=== PATIENT | male | born 1960 | race Caucasian/White ===

== ENCOUNTER 2016-09-26 04:08 | Emergency (ER) | payer MEDICAID ==
[~2016-09-26 04:08] MED LIST: BACT800T5 PO; CEPH-460 PO; HYDR-3533 PO
[2016-09-26 04:10] VITALS: BP 127/87; PULSE 82; RESP 18; TEMP 97.9; O2SAT 95
[2016-09-26] MEDS ORDERED: IBUP800T23 PO (04:25)
[2016-09-26] MEDS ORDERED: ACETAMINOPHEN/HYDROcodone 325 MG/5 MG TAB PO ONE (04:30)
[2016-09-26] MEDS ORDERED: KETOROLAC TROMETHAMINE 60 MG/2 ML (IM) VIAL IM ONE (04:30)
--- NOTE | 2016-09-26 04:30 | PD ---
HPI Chief Complaint: Pain: Acute or Chronic Time Seen by Provider: 04:18 Travel History International Travel<30 days: No Contact w/Intl Traveler<30days: No Traveled to known affect area: No History of Present Illness HPI 55 year old male presents for evaluation of chronic lower back and bilateral knee pain. Symptoms have been ongoing for several months. He denies any new pain. He denies any injury. The pain is an aching pain that is constant but worse with movement. He denies any bowel or bladder incontinence, radicular symptoms, saddle anesthesia, abdominal pain, flank pain, nausea or vomiting, fevers or chills, IV drug abuse. He has not been using any medication for symptom relief. He reports a history of rheumatoid arthritis as well as "bone- on-bone" osteoarthritis in both knees. The patient has been seen here multiple times in the past for various musculoskeletal complaints. He has no other complaints at this time. PFSH Past Medical History Hx Anticoagulant Therapy: No Arthritis: Yes (OA, RA) Asthma: No Autoimmune Disease: No Blood Disorders: No Anxiety: Yes Depression: Yes Heart Rhythm Problems: No Cancer: No Cardiac Catheterization: Yes (stent) Cardiovascular Problems: Yes (CHF) High Cholesterol: Yes Chemotherapy: No Chest Pain: Yes Congestive Heart Failure: No Cirrhosis: Yes COPD: Yes (EMPHYSEMA) Cerebrovascular Accident: No Diabetes: No Diminished Hearing: No Endocrine: No Gastrointestinal Disorders: Yes GERD: Yes Glaucoma: No Gout: Yes Genitourinary: Yes Hepatitis: No Hiatal Hernia: No Hypertension: Yes Immune Disorder: Yes (RA) Kidney Stones: Yes Musculoskeletal: Yes (GOUT) Neurologic: Yes (NEUROPATHY) Psychiatric: Yes Reproductive: No Respiratory: No Immunizations Current: Yes Migraines: No Myocardial Infarction: No Renal Failure: No Schizophrenia: Yes Seizures: Yes Sickle Cell Disease: No Sleep Apnea: No Thyroid Disease: No Ulcer: No Past Surgical History Abdominal Surgery: No AICD: No Arteriovenous Shunt: No Body Medical Devices: PT STATES NO IMPLANTED DEVICES Cardiac Surgery: No Coronary Artery Bypass Graft: No Ear Surgery: No Endocrine Surgery: No Eye Surgery: No Genitourinary Surgery: Yes (kidney stent ) Gynecologic Surgery: No Insulin Pump: No Joint Replacement: No Oral Surgery: No Pacemaker: No Thoracic Surgery: No Other Surgery: Yes Social History Alcohol Use: Yes (occasionaly ) Tobacco Use: Yes Substance Use: No Allergies-Medications (Allergen,Severity, Reaction): Coded Allergies: No Known Allergies (Verified , 07/20/16) Reported Meds & Prescriptions Reported Meds & Active Scripts Active Ibuprofen 800 Mg Tab 800 Mg PO Q6HR PRN Keflex (Cephalexin) 500 Mg Cap 500 Mg PO Q6H 10 Days Bactrim DS (Sulfamethoxazole-Trimethoprim) 800-160 Mg Tab 1 Tab PO BID Lortab (Hydrocodone-Acetaminophen) 5-325 Mg Tab 1 Tab PO Q8HR PRN Review of Systems Except as stated in HPI: all other systems reviewed are Neg Physical Exam Narrative GENERAL: This is a well-developed well-nourished male in no acute distress. His vital signs are been reviewed. SKIN: Warm and dry. HEAD: Atraumatic. Normocephalic. EYES: Pupils equal and round. No scleral icterus. No injection or drainage. ENT: No nasal bleeding or discharge. Mucous membranes pink and moist. NECK: Trachea midline. No JVD. CARDIOVASCULAR: Regular rate and rhythm. No murmur appreciated. RESPIRATORY: No accessory muscle use. Clear to auscultation. Breath sounds equal bilaterally. GASTROINTESTINAL: Abdomen soft, non-tender, nondistended. Hepatic and splenic margins not palpable. MUSCULOSKELETAL: No obvious deformities. Bony crepitus is noted with passive flexion and extension of both knees. The patient maintains full range of motion of the extremities. There is no joint effusion. No erythema. There is no CVA tenderness. There is no tenderness to percussion of the lumbar vertebrae. NEUROLOGICAL: Awake and alert. No obvious cranial nerve deficits. Motor grossly within normal limits. Normal speech. Data Data Last Documented VS Vital Signs Date Time Temp Pulse Resp B/P Pulse Ox O2 Delivery O2 Flow Rate FiO2 09/26/16 04:10 97.9 82 18 127/87 95 Room Air Orders Ketorolac Inj (Toradol Inj) (09/26/16 04:30) Acetamin-Hydrocod 325-5 Mg ([place] 5-325 (09/26/16 04:30) MDM Medical Decision Making Medical Screen Exam Complete: Yes Emergency Medical Condition: Yes Medical Record Reviewed: Yes Differential Diagnosis Degenerative disc disease, osteoarthritis, ankylosing spondylitis, rheumatoid arthritis, septic arthritis, inflammatory arthritis Narrative Course 55-year-old male with history of recurrent arthritis presents for evaluation of chronic lower back pain and bilateral knee pain. There is no recent injury. Examination reveals bony crepitus to both knees. The patient maintains full range of motion of the extremities. There is no evidence of an inflammatory arthritis. The patient has no red flag symptoms in regards to his lower back pain. The plan is to treat the patient symptomatically primarily with NSAIDs and have him follow-up with his primary care physician. Diagnosis Primary Impression: Chronic lower back pain Qualified Code: M54.5 - Chronic low back pain without sciatica, unspecified back pain laterality Additional Impression: Osteoarthritis of knees, bilateral Qualified Code: M17.0 - Osteoarthritis of both knees, unspecified osteoarthritis type Additional Instructions: Medication as needed. Take with meals. Follow-up with primary care physician. Return for any emergent medical conditions. Med/Other Pt SpecificInfo: Prescription(s) given Scripts Ibuprofen 800 Mg [id number] Mg PO Q6HR PRN (PAIN) #40 TAB Ref 0 Prov:Talib John MD 09/26/16 Disposition: 01 DISCHARGE HOME Condition: Stable Finn Kahn Sep 26, 2016 04:30
== END 2016-09-26 05:13 | disposition home or self-care (01) ==
LOC: NEPB 04:08
DX: M54.5 Low back pain (principal); M17.0 Bilateral primary osteoarthritis of knee; G89.29 Other chronic pain; M06.9 Rheumatoid arthritis, unspecified; I50.9 Heart failure, unspecified; E78.00 Pure hypercholesterolemia, unspecified; J44.9 Chronic obstructive pulmonary disease, unspecified; K21.9 Gastro-esophageal reflux disease without esophagitis; I10 Essential (primary) hypertension; M10.9 Gout, unspecified; Z72.0 Tobacco use
CPT/HCPCS: 96372; 99283; J1885

== ENCOUNTER 2016-12-22 09:58 | Emergency (ER) | payer MEDICAID, OTHER ==
[~2016-12-22] VITALS: Ht 172.7 cm; Wt 86.0 kg
[~2016-12-22 09:58] MED LIST changes: +IBUP800T23 PO
[2016-12-22 10:00] VITALS: BP 142/102; PULSE 98; RESP 24; TEMP 98.1; O2SAT 96
[2016-12-22] MEDS ORDERED: KETOROLAC TROMETHAMINE 60 MG/2 ML (IM) VIAL IM ONE (10:45)
[2016-12-22] MEDS ORDERED: PRED20 PO (10:54)
--- NOTE | 2016-12-22 10:54 | PD ---
HPI Chief Complaint: Edema Time Seen by Provider: 10:20 Travel History International Travel<30 days: No Contact w/Intl Traveler<30days: No Traveled to known affect area: No History of Present Illness HPI Patient is a 56-year-old male who presents the emergency department with complaint of acute on chronic pain. Patient is a history of rheumatoid arthritis and osteoarthritis. He sees Dr. Pratt for this, who referred him to the pathologist but he has not been able to get in with them. That Dr. Pratt would not control his pain and only prescribed him Xanax. He has been taking some Tylenol and occasionally ibuprofen at home without improvement of his symptoms prompting ER visit. He notes the pain to be most notable on the bilateral feet and ankles and right elbow. Pain is made worse with weightbearing, movement. There is some associated swelling. All this is chronic and nothing is acutely worse today. He denies any redness, fevers or chills. PFSH Past Medical History Hx Anticoagulant Therapy: No Arthritis: Yes (OA, RA) Asthma: No Autoimmune Disease: No Blood Disorders: No Anxiety: Yes Depression: Yes Heart Rhythm Problems: No Cancer: No Cardiac Catheterization: Yes (stent) Cardiovascular Problems: Yes (CHF) High Cholesterol: Yes Chemotherapy: No Chest Pain: Yes Congestive Heart Failure: Yes Cirrhosis: Yes COPD: Yes (EMPHYSEMA) Cerebrovascular Accident: No Diabetes: No Diminished Hearing: No Endocrine: No Gastrointestinal Disorders: Yes GERD: Yes Glaucoma: No Gout: Yes Genitourinary: Yes Hepatitis: No Hiatal Hernia: No Hypertension: Yes Immune Disorder: Yes (RA) Kidney Stones: Yes Musculoskeletal: Yes (GOUT) Neurologic: Yes (NEUROPATHY) Psychiatric: Yes Reproductive: No Respiratory: No Immunizations Current: Yes Migraines: No Myocardial Infarction: No Renal Failure: No Schizophrenia: Yes Seizures: Yes Sickle Cell Disease: No Sleep Apnea: No Thyroid Disease: No Ulcer: No Past Surgical History Abdominal Surgery: No AICD: No Arteriovenous Shunt: No Body Medical Devices: PT STATES NO IMPLANTED DEVICES Cardiac Surgery: No Coronary Artery Bypass Graft: No Ear Surgery: No Endocrine Surgery: No Eye Surgery: No Genitourinary Surgery: Yes (kidney stent ) Gynecologic Surgery: No Insulin Pump: No Joint Replacement: No Oral Surgery: No Pacemaker: No Thoracic Surgery: No Other Surgery: Yes Social History Alcohol Use: Yes (occasionaly ) Tobacco Use: Yes Substance Use: No Allergies-Medications (Allergen,Severity, Reaction): Coded Allergies: No Known Allergies (Verified , 12/22/16) Reported Meds & Prescriptions Reported Meds & Active Scripts Active No Active Prescriptions or Reported Medications Review of Systems Except as stated in HPI: all other systems reviewed are Neg Physical Exam Narrative GENERAL: Well-appearing male in no acute distress. SKIN: Focused skin assessment warm/dry. HEAD: Normocephalic. EYES: No scleral icterus. No injection or drainage. ENT: Mucous membranes pink and moist. NECK: Supple CARDIOVASCULAR: Regular rate and rhythm. RESPIRATORY: No accessory muscle use. MUSCULOSKELETAL: Bilateral feet with mild nonpitting edema. Patient has degenerative arthritic changes that are apparent on physical examination of the feet and ankles. He has some pain with range of motion but is able to range and is able to ambulate without any difficulty. The right elbow also has some apparent degenerative arthritic changes. Patient is able to extend to tendon 15 short of full extension and flex fully, albeit with some pain. Strength is intact. Distal sensation and pulses are intact. There is not any erythema, warmth or fluctuance of these areas. NEUROLOGICAL: Awake and alert. Normal speech. PSYCHIATRIC: Appropriate mood and affect; insight and judgment normal. Data Data Last Documented VS Vital Signs Date Time Temp Pulse Resp B/P Pulse Ox O2 Delivery O2 Flow Rate FiO2 12/22/16 10:19 12/22/16 10:00 98.1 98 24 96 Room Air Orders Ketorolac Inj (Toradol Inj) (12/22/16 10:45) MDM Medical Decision Making Medical Screen Exam Complete: Yes Emergency Medical Condition: Yes Medical Record Reviewed: Yes Differential Diagnosis 56-year-old male with history of rheumatoid and osteoarthritis here with complaint of pain to the bilateral feet, ankles and right elbow. Differential includes acute on chronic pain, rheumatoid flare, drug-seeking behavior. No report of trauma to suggest fracture. Narrative Course Patient was looked up on the prescription drug monitoring program. Patient has received narcotics from emergency department physician's from [place] to [place] to [place]. Suspicion for drug-seeking behavior. Patient was offered nonnarcotic pain medicine options in the emergency department. He then refused to sign the consent for treatment. I informed that if he can't consent for treatment I can't control his pain and then patient agreed to taking the dose of Toradol ordered. He then signed the consent for treatment. He was referred to his primary, pain management and customer insight analyst as an outpatient for management of his acute on chronic pain. Diagnosis Primary Impression: Chronic pain Qualified Code: G89.4 - Chronic pain syndrome Additional Impression: Drug-seeking behavior Referrals: Pain Management call for appointment Primary Care Physician call for appointment Additional Instructions: Steroids as prescribed. Follow-up with Dr. Dwight Swan [phone] for rheumatology. Follow-up with primary care provider in pain management for management of your chronic pain. The emergency department is not an appropriate location for management of chronic pain syndromes. It is against our department policy to prescribe narcotics for chronic pain. Med/Other Pt SpecificInfo: Prescription(s) given Scripts Prednisone 20 Mg Tab40 Mg PO DAILY 7 Days Ref 0 Take 40 mg (2 tablets) daily for 5 days Prov:Vivian Jones MD 12/22/16 Disposition: 01 DISCHARGE HOME Condition: Stable Vivian Jones MD Dec 22, 2016 10:54
== END 2016-12-22 10:59 | disposition home or self-care (01) ==
LOC: NEPD 09:58
DX: G89.29 Other chronic pain (principal); Z76.5 Malingerer [conscious simulation]; I10 Essential (primary) hypertension; Z72.0 Tobacco use; M06.9 Rheumatoid arthritis, unspecified
CPT/HCPCS: 96372; 99283; J1885

== ENCOUNTER 2017-01-19 13:41 | Emergency (ER) | payer SELFPAY ==
[~2017-01-19] VITALS: Ht 172.7 cm; Wt 87.0 kg
[~2017-01-19 13:41] MED LIST changes: -BACT800T5 PO; -CEPH-460 PO; -HYDR-3533 PO; -IBUP800T23 PO; +PRED20 PO
[2017-01-19 13:43] VITALS: BP 162/102; PULSE 74; RESP 20; TEMP 97.3; O2SAT 97
[2017-01-20] MEDS ORDERED: MELO-1 PO (12:23)
== END 2017-01-19 21:36 | disposition left against medical advice (07) ==
LOC: NED 13:41
DX: R06.02 Shortness of breath (principal)
CPT/HCPCS: 99281

== ENCOUNTER 2017-01-20 11:35 | Emergency (ER) | payer OTHER ==
[~2017-01-20] VITALS: Ht 172.7 cm; Wt 89.0 kg
[2017-01-20 11:36] VITALS: BP 173/102; PULSE 76; RESP 18; TEMP 98.3; O2SAT 97
--- NOTE | 2017-01-20 11:40 | PD ---
Physical Exam Time Seen by Provider: 11:40 Narrative 56 y/o male with 2 months of chest tightness, "puffiness" in the right lower extremity. Vital signs reviewed. Seen at triage desk. Awaiting bed placement. Data Data Last Documented VS Vital Signs Date Time Temp Pulse Resp B/P Pulse Ox O2 Delivery O2 Flow Rate FiO2 01/20/17 11:36 98.3 76 18 173/102 97 Room Air [facility] Medical Record Reviewed: Yes Supervised Visit with AZALEA: Finn Vargas January 20, 2017 11:40
[2017-01-20 12:11] LABS: AUTOMATED NEUTROPHIL # 7.2 TH/MM3 (1.8-7.7); BASOPHIL % 0.5 % (0.0-2.0); EOSINOPHIL # 0.2 TH/MM3 (0-0.4); HEMATOCRIT 40.3 % (39.0-51.0); HEMO FLAGS DIFF FINAL; LYMPH % 18.4 % (9.0-44.0); LYMPHOCYTE # 1.8 TH/MM3 (1.0-4.8); MEAN CELL VOLUME 81.6 FL (80.0-100.0); MEAN CORPUSCULAR HEMOGLOBIN 27.5 PG (27.0-34.0); MEAN CORPUSCULAR HGB CONC 33.7 % (32.0-36.0); MONO % 6.7 % (0.0-8.0); NEUT % 72.4 % (16.0-70.0); PLATELET COUNT 260 TH/MM3 (150-450); RED BLOOD COUNT 4.94 MIL/MM3 (4.50-5.90); RED CELL DISTRIBUTION WIDTH 15.3 % (11.6-17.2); WHITE BLOOD COUNT 9.9 TH/MM3 (4.0-11.0)
[2017-01-20 12:15] VITALS: BP 144/94; PULSE 72; RESP 20; O2SAT 98
[2017-01-20] MEDS ORDERED: MELO-1 PO (12:23)
--- NOTE | 2017-01-20 12:27 | PD ---
HPI Chief Complaint: Chest Pain Time Seen by Provider: 12:06 Travel History International Travel<30 days: No Contact w/Intl Traveler<30days: No Traveled to known affect area: No History of Present Illness HPI Is a 56 year-old man who a history of schizophrenia presents emergent department complaining of intermittent chest pain for months, he describes as a tightness and a constrained in his chest, as well as leg pain in when he is up on his feet working. His a primary physician. He had a negative stress test in March of last year. No other complaints. History Past Medical History Narrative Medical Hypertension Schizophrenia Anxiety Gout Social History Alcohol Use: Yes Tobacco Use: Yes Allergies-Medications (Allergen,Severity, Reaction): Coded Allergies: No Known Allergies (Verified , 01/19/17) Reported Meds & Prescriptions Reported Meds & Active Scripts Active Review of Systems Except as stated in HPI: all other systems reviewed are Neg Physical Exam Narrative GENERAL: Well-appearing 56-year-old man, no acute distress. SKIN: Focused skin assessment warm/dry. HEAD: Atraumatic. Normocephalic. CARDIOVASCULAR: Regular rate and rhythm. No murmur appreciated. RESPIRATORY: No accessory muscle use. Clear to auscultation. Breath sounds equal bilaterally. GASTROINTESTINAL: Abdomen soft, non-tender, nondistended. Hepatic and splenic margins not palpable. MUSCULOSKELETAL: No obvious deformities. No clubbing. No cyanosis. No edema. NEUROLOGICAL: Awake and alert. No obvious cranial nerve deficits. Motor grossly within normal limits. Normal speech. PSYCHIATRIC: Appropriate mood and affect; insight and judgment normal. Data Data Last Documented VS Vital Signs Date Time Temp Pulse Resp B/P Pulse Ox O2 Delivery O2 Flow Rate FiO2 01/20/17 12:15 72 20 144/94 98 Room Air 01/20/17 11:36 98.3 Orders Electrocardiogram (01/20/17 ) Complete Blood Count With Diff (01/20/17 11:46) Basic Metabolic Panel (Bmp) (01/20/17 11:46) Ckmb (Isoenzyme) Profile (01/20/17 11:46) Troponin I (01/20/17 11:46) Meloxicam (Mobic) (01/20/17 12:30) Labs Laboratory Tests Test 01/20/17 12:00 White Blood Count 9.9 TH/MM3 Red Blood Count 4.94 MIL/MM3 Hemoglobin 13.6 GM/DL Hematocrit 40.3 % Mean Corpuscular Volume 81.6 FL Mean Corpuscular Hemoglobin 27.5 PG Mean Corpuscular Hemoglobin 33.7 % Concent Red Cell Distribution Width 15.3 % Platelet Count 260 TH/MM3 Mean Platelet Volume 8.6 FL Neutrophils (%) (Auto) 72.4 % Lymphocytes (%) (Auto) 18.4 % Monocytes (%) (Auto) 6.7 % Eosinophils (%) (Auto) 2.0 % Basophils (%) (Auto) 0.5 % Neutrophils # (Auto) 7.2 TH/MM3 Lymphocytes # (Auto) 1.8 TH/MM3 Monocytes # (Auto) 0.7 TH/MM3 Eosinophils # (Auto) 0.2 TH/MM3 Basophils # (Auto) 0.0 TH/MM3 CBC Comment DIFF FINAL Differential Comment MDM Medical Decision Making Medical Screen Exam Complete: Yes Emergency Medical Condition: Yes Differential Diagnosis Chest pain, stress, leg pain, arthritis, other Narrative Course Medical decision making Is a well 56-year-old man with multiple complaints. He rambles a little bit. Feels like his legs Jh up walking and moving a lot more not at work. He also scrotum intermittent sinus congestion his chest is been seen for this before. In the emergency department for amount. He looks overall well. I think is safe for outpatient follow-up. We'll put him on some oxygen which he says is helped him in the past for his aches and pains. Diagnosis Primary Impression: Acute chest pain Additional Impression: Leg pain Patient Instructions: General Instructions Additional Instructions: Take meloxicam as prescribed. Follow-up with her primary doctor in next 2-4 days. Return to the emergency department for any new or worsening symptoms. Med/Other Pt SpecificInfo: Prescription(s) given Scripts Meloxicam 15 Mg Tab15 Mg PO DAILY #30 TAB Prov:Guido Pearson MD 01/20/17 Disposition: 01 DISCHARGE HOME Condition: Stable Guido Pearson MD January 20, 2017 12:27
[2017-01-20] MEDS ORDERED: MELOXICAM 15 MG TAB PO ONE (12:30)
[2017-01-20 12:33] LABS: CREATINE KINASE 188 U/L (39-308)
[2017-01-20 12:36] LABS: ANION GAP 8 MEQ/L (5-15); BICARBONATE 25.8 MEQ/L (21.0-32.0); BLOOD UREA NITROGEN 27 MG/DL (7-18); CHLORIDE 107 MEQ/L (98-107); GLOMERULAR FILTRATION RATE 52 ML/MIN (>89); POTASSIUM 4.3 MEQ/L (3.5-5.1); SODIUM (NA) 141 MEQ/L (136-145)
[2017-01-20 12:46] LABS: CKMB 2.1 NG/ML (0.5-3.6)
--- NOTE | 2017-01-21 11:08 | EKG ---
Date Performed: 01/20/2017 Time Performed: 11:51:00 PTAGE: 56 years EKG: Sinus rhythm NORMAL ECG PREVIOUS TRACING : 05/09/2016 04.04 DOCTOR: Guido Dumont Interpretating Date/Time 01/21/2017 11:06:23
== END 2017-01-20 13:45 | disposition home or self-care (01) ==
LOC: NEPD 11:35
DX: I10 Essential (primary) hypertension (principal); R07.9 Chest pain, unspecified; M79.606 Pain in leg, unspecified
CPT/HCPCS: 80048; 82550; 82552; 84484; 85025; 93005

== ENCOUNTER 2017-01-29 13:32 | Emergency (ER) | payer OTHER ==
[~2017-01-29] VITALS: Ht 172.7 cm; Wt 86.0 kg
[~2017-01-29 13:32] MED LIST changes: +MELO-1 PO; -PRED20 PO
[2017-01-29 13:35] VITALS: BP 142/93; PULSE 80; RESP 20; TEMP 98.8; O2SAT 97
--- NOTE | 2017-01-29 13:40 | PD ---
HPI . Medication refill request Chief Complaint: Medication Refill Request Time Seen by Provider: 13:40 Travel History International Travel<30 days: No Contact w/Intl Traveler<30days: No Traveled to known affect area: No History of Present Illness HPI 56-year-old male here with complaints of chronic pain he tells me that he had a prescription for meloxicam, which he accidentally spilled something on and it is no longer present. He is requesting a prescription for meloxicam. He tells me that his primary care provider refuses to give him any type of pain medications including anti-inflammatories. He says no matter what his pain is always 7/10. He denies any new issues. Denies any recent injury. He is also requesting some type of medication here while he is waiting for his refill. PFSH Past Medical History Hx Anticoagulant Therapy: No Arthritis: Yes (OA, RA) Asthma: No Autoimmune Disease: No Blood Disorders: No Anxiety: Yes Depression: Yes Heart Rhythm Problems: No Cancer: No Cardiac Catheterization: Yes (stent) Cardiovascular Problems: Yes (CARDIAC CATH, HTN) High Cholesterol: Yes Chemotherapy: No Chest Pain: Yes Congestive Heart Failure: Yes Cirrhosis: Yes COPD: Yes (EMPHYSEMA) Cerebrovascular Accident: Yes (TIA) Diabetes: No Diminished Hearing: No Endocrine: No Gastrointestinal Disorders: Yes GERD: Yes Glaucoma: No Gout: Yes Genitourinary: Yes Hepatitis: No Hiatal Hernia: No Hypertension: Yes Immune Disorder: Yes (RA) Kidney Stones: Yes Musculoskeletal: Yes (GOUT) Neurologic: Yes (NEUROPATHY) Psychiatric: Yes Reproductive: No Respiratory: Yes (EMPHYSEMA) Immunizations Current: Yes Migraines: No Myocardial Infarction: Yes Renal Failure: No Schizophrenia: Yes Seizures: Yes Sickle Cell Disease: No Sleep Apnea: No Thyroid Disease: No Ulcer: No Past Surgical History Abdominal Surgery: No AICD: No Arteriovenous Shunt: No Cardiac Surgery: No Coronary Artery Bypass Graft: No Ear Surgery: No Endocrine Surgery: No Eye Surgery: No Genitourinary Surgery: Yes (kidney stent ) Insulin Pump: No Joint Replacement: No Pacemaker: No Other Surgery: Yes Social History Alcohol Use: Yes Tobacco Use: Yes Substance Use: No Allergies-Medications (Allergen,Severity, Reaction): Coded Allergies: No Known Allergies (Verified , 01/29/17) Reported Meds & Prescriptions Reported Meds & Active Scripts Active Mobic (Meloxicam) 15 Mg Tab 15 Mg PO DAILY Review of Systems General / Constitutional: No: Fever Eyes: No: Visual changes HENT: No: Headaches Cardiovascular: No: Chest Pain or Discomfort Respiratory: No: Shortness of Breath Gastrointestinal: No: Abdominal Pain Genitourinary: No: Dysuria Musculoskeletal: Positive: Pain (chronic diffuse pain) Skin: No Rash Neurologic: No: Weakness Psychiatric: No: Depression Endocrine: No: Polydipsia Hematologic/Lymphatic: No: Easy Bruising Physical Exam Narrative GENERAL: AAO x 3, no acute distress, Well-nourished, well-developed patient. SKIN: Warm and dry. No visible rashes or bruising. HEAD: Normocephalic and atraumatic. EYES: No scleral icterus. No injection or drainage. ENT: No nasal drainage noted. Mucous membranes pink. Airway patent. NECK: Supple, trachea midline. No JVD. CARDIOVASCULAR: Regular rate and rhythm without murmurs, gallops, or rubs. RESPIRATORY: Breath sounds equally diminished bilaterally. No accessory muscle use. No rhonchi or rales. GASTROINTESTINAL: She'll inspection normal EXTREMITIES: No cyanosis or edema. BACK: No obvious deformity. PSYCH: AAO x 3, normal affect. Data Data Last Documented VS Vital Signs Date Time Temp Pulse Resp B/P Pulse Ox O2 Delivery O2 Flow Rate FiO2 01/29/17 13:35 98.8 80 20 142/93 97 Room Air Orders Ibuprofen (Motrin) (01/29/17 13:45) MDM Medical Decision Making Medical Screen Exam Complete: Yes Emergency Medical Condition: Yes Medical Record Reviewed: Yes Differential Diagnosis Chronic pain, medication refill, rheumatoid arthritis Narrative Course This is a 56-year-old male here requesting a refill on meloxicam. He is also wanting something for pain right now. Provided him with ibuprofen 800 mg. I explained to him that he will need to get any further refills from his primary care provider. Patient verbalized understanding of instructions, questions were answered, and thanked me for their care. I advised them if their condition worsens, please return to the nearest emergency room for further care. Diagnosis Primary Impression: Medication refill Additional Impression: Chronic pain Qualified Code: G89.29 - Other chronic pain Patient Instructions: General Instructions Additional Instructions: As we discussed, you will need to follow-up with your primary care providers to obtain any further refills of medications. Med/Other Pt SpecificInfo: Prescription(s) given Scripts Meloxicam (Mobic)15 Mg Tab15 Mg PO DAILY #14 TAB Ref 0 Prov:Mono Dixon MD 01/29/17 Disposition: 01 DISCHARGE HOME Condition: Stable Ora Hidalgo January 29, 2017 13:40 Ora Hidalgo January 29, 2017 13:40
[2017-01-29] MEDS ORDERED: IBUPROFEN 800 MG TAB PO ONE (13:45)
[2017-01-29] MEDS ORDERED: MOBI15TA PO (13:45)
== END 2017-01-29 14:09 | disposition home or self-care (01) ==
LOC: NEPK 13:32
DX: G89.29 Other chronic pain (principal); I10 Essential (primary) hypertension; E78.00 Pure hypercholesterolemia, unspecified; Z72.0 Tobacco use; Z76.0 Encounter for issue of repeat prescription; Z87.39 Personal history of other diseases of the musculoskeletal system and connective tissue; Z86.59 Personal history of other mental and behavioral disorders; Z86.79 Personal history of other diseases of the circulatory system; Z87.19 Personal history of other diseases of the digestive system; Z87.448 Personal history of other diseases of urinary system; Z86.2 Personal history of diseases of the blood and blood-forming organs and certain disorders involving the immune mechanism; Z86.69 Personal history of other diseases of the nervous system and sense organs; Z87.09 Personal history of other diseases of the respiratory system
CPT/HCPCS: 99283

== ENCOUNTER 2017-02-23 09:01 | Emergency (ER) | payer OTHER ==
[~2017-02-23] VITALS: Ht 177.8 cm; Wt 85.0 kg
[~2017-02-23 09:01] MED LIST changes: -MELO-1 PO; +MOBI15TA PO
[2017-02-23 09:05] VITALS: BP 150/97; PULSE 88; RESP 16; TEMP 98.3; O2SAT 99
[2017-02-23 10:01] VITALS: BP 178/112; PULSE 74; RESP 14; TEMP 98.2; O2SAT 100
[2017-02-23] MEDS ORDERED: MELO-1 PO (10:14)
[2017-02-23] MEDS ORDERED: PERC5TAB12 PO (10:17)
[2017-02-23] MEDS ORDERED: ALPR.5 PO (10:18)
--- NOTE | 2017-02-23 10:35 | PD ---
HPI Chief Complaint: Cardiac Complaint Time Seen by Provider: 10:08 Travel History International Travel<30 days: No Contact w/Intl Traveler<30days: No Traveled to known affect area: No History of Present Illness HPI This is a 56-year-old male who I think has a history of traumatic brain injury or an underlying mental illness who presents to the emergency department with multiple nonspecific complaints. He is having pain in his feet, swelling in his feet, is very anxious, has intermittent chest pains, doesn't feel like he can work, and is having exacerbations of his rheumatoid and gouty arthritis. He doesn't provide much of a linear history. He gets somewhat tearful intermittently and says he is very worried he is going to . PFSH Past Medical History Hx Anticoagulant Therapy: No Arthritis: Yes (OA, RA) Asthma: No Autoimmune Disease: No Blood Disorders: No Anxiety: Yes Depression: Yes Heart Rhythm Problems: No Cancer: No Cardiac Catheterization: Yes (stent) Cardiovascular Problems: Yes (CARDIAC CATH, HTN) High Cholesterol: Yes Chemotherapy: No Chest Pain: Yes Congestive Heart Failure: Yes Cirrhosis: Yes COPD: Yes (EMPHYSEMA) Cerebrovascular Accident: Yes (TIA) Diabetes: No Diminished Hearing: No Endocrine: No Gastrointestinal Disorders: Yes GERD: Yes Glaucoma: No Gout: Yes Genitourinary: Yes Hepatitis: No Hiatal Hernia: No Heparin Induced Thrombocytopen: No Hypertension: Yes Immune Disorder: Yes (RA) Implanted Vascular Access Dvce: No Kidney Stones: Yes Medical other: No Musculoskeletal: Yes (GOUT) Neurologic: Yes (NEUROPATHY) Psychiatric: Yes Reproductive: No Respiratory: Yes (EMPHYSEMA) Immunizations Current: Yes Migraines: No Myocardial Infarction: Yes Renal Failure: No Schizophrenia: Yes Seizures: Yes Sickle Cell Disease: No Sleep Apnea: No Thyroid Disease: No Ulcer: No Past Surgical History Abdominal Surgery: No AICD: No Arteriovenous Shunt: No Cardiac Surgery: No Coronary Artery Bypass Graft: No Ear Surgery: No Endocrine Surgery: No Eye Surgery: No Genitourinary Surgery: Yes (kidney stent ) Insulin Pump: No Joint Replacement: No Neurologic Surgery: No Pacemaker: No Other Surgery: Yes Social History Alcohol Use: Yes Tobacco Use: Yes (1 12PPD) Substance Use: No Allergies-Medications (Allergen,Severity, Reaction): Coded Allergies: No Known Allergies (Verified , 01/29/17) Reported Meds & Prescriptions Reported Meds & Active Scripts Active Reported Xanax (Alprazolam) 0.5 Mg Tab 0.5 Mg PO BID PRN Meloxicam 15 Mg Tab 15 Mg PO DAILY Review of Systems ROS Limitations: Poor Historian Physical Exam Narrative GENERAL:Well appearing, no acute distress SKIN: Focused skin assessment warm and dry. HEAD: Atraumatic. Normocephalic. EYES: Pupils equal and round. No injection or drainage. ENT: Moist mucous membranes NECK: Trachea midline. CARDIOVASCULAR: Regular rate and rhythm. No murmur appreciated. RESPIRATORY: Clear to auscultation. Breath sounds equal bilaterally. GASTROINTESTINAL: Abdomen soft, non-tender, nondistended. MUSCULOSKELETAL: No obvious deformities. NEUROLOGICAL: Awake and alert. No obvious cranial nerve deficits. Moving all extremities. PSYCHIATRIC: Tangential, no thoughts of hurting himself or others, somewhat tearful Data Data Last Documented VS Vital Signs Date Time Temp Pulse Resp B/P Pulse Ox O2 Delivery O2 Flow Rate FiO2 02/23/17 10:01 98.2 74 14 178/112 100 Room Air MDM Medical Decision Making Medical Screen Exam Complete: Yes Emergency Medical Condition: Yes Differential Diagnosis Acute coronary syndrome, rheumatoid arthritis, osteoarthritis, depression, schizophrenia, traumatic brain injury Narrative Course This is a 56-year-old male who presents to the emergency department with multiple nonspecific complaints. It's very difficult to pinpoint his chief complaint and he is very tangential and rambling when he speaks. I think it all boils down to him requesting pain medication for his osteoarthritis and rheumatoid arthritis. I don't think he is a harm to himself or others. He's been to the emergency department multiple times for similar complaints in the past several years. He had a normal stress test on March [id number]. I think he can safely be discharged. I don't think his presentation today reflects an emergency and I don't think he would benefit from additional testing in the emergency department. Diagnosis Primary Impression: Chronic pain Qualified Code: G89.29 - Other chronic pain Patient Instructions: General Instructions Additional Instructions: If you develop severe chest pain, shortness of breath, sweating, lightheadedness , dizziness or difficulty breathing return to the emergency department immediately. Followup with your primary care physician in 2-3 days if your symptoms are not resolved. Med/Other Pt SpecificInfo: No Change to Meds Disposition: 01 DISCHARGE HOME Condition: Stable Selena Hernandez MD Feb 23, 2017 10:35
[2017-02-24] MEDS ORDERED: PRED50 PO (20:31)
[2017-02-24] MEDS ORDERED: MELO-1 PO (20:31)
== END 2017-02-23 11:56 | disposition home or self-care (01) ==
LOC: NEPD 09:01
DX: G89.29 Other chronic pain (principal); M79.89 Other specified soft tissue disorders; M06.9 Rheumatoid arthritis, unspecified; J43.9 Emphysema, unspecified; I10 Essential (primary) hypertension; G45.9 Transient cerebral ischemic attack, unspecified; M10.9 Gout, unspecified; E78.00 Pure hypercholesterolemia, unspecified; Z87.442 Personal history of urinary calculi; I25.2 Old myocardial infarction; F17.210 Nicotine dependence, cigarettes, uncomplicated
CPT/HCPCS: 99282

== ENCOUNTER 2017-02-24 18:54 | Emergency (ER) | payer OTHER ==
[~2017-02-24] VITALS: Ht 175.3 cm; Wt 87.3 kg
[~2017-02-24 18:54] MED LIST changes: +ALPR.5 PO; +MELO-1 PO; -MOBI15TA PO
[2017-02-24 18:56] VITALS: BP 134/74; PULSE 77; RESP 15; TEMP 98.2; O2SAT 98
[2017-02-24] MEDS ORDERED: KETOROLAC TROMETHAMINE 60 MG/2 ML (IM) VIAL IM ONE (19:45)
--- NOTE | 2017-02-24 19:52 | PD ---
HPI Chief Complaint: Pain: Acute or Chronic Time Seen by Provider: 19:48 Travel History International Travel<30 days: No Contact w/Intl Traveler<30days: No Traveled to known affect area: No History of Present Illness HPI Patient is a 56-year-old male presenting to emergency for evaluation of left hand pain and swelling. Patient states his symptoms have been ongoing for 4 days, he denies any injury or trauma. He reports the pain is a 5 out of 10 and states it is sore. He denies any redness, fevers, chills, IV drug use. He does report a history of rheumatoid arthritis and gout. Swelling is localized over the first and second fingers and first and second metacarpals PFSH Past Medical History Hx Anticoagulant Therapy: No Arthritis: Yes (OA, RA) Asthma: No Autoimmune Disease: No Blood Disorders: No Anxiety: Yes Depression: Yes Heart Rhythm Problems: No Cancer: No Cardiac Catheterization: Yes (stent) High Cholesterol: Yes Chemotherapy: No Chest Pain: Yes Congestive Heart Failure: Yes Cirrhosis: Yes COPD: Yes (EMPHYSEMA) Cerebrovascular Accident: Yes (TIA) Diabetes: No Diminished Hearing: No Endocrine: No GERD: Yes Glaucoma: No Gout: Yes Genitourinary: Yes Hepatitis: No Hiatal Hernia: No Heparin Induced Thrombocytopen: No Hypertension: Yes Implanted Vascular Access Dvce: No Kidney Stones: Yes Neurologic: Yes (NEUROPATHY) Psychiatric: Yes Reproductive: No Immunizations Current: Yes Migraines: No Myocardial Infarction: Yes Renal Failure: No Schizophrenia: Yes Seizures: Yes Sickle Cell Disease: No Sleep Apnea: No Thyroid Disease: No Ulcer: No Tetanus Vaccination: > 5 Years Past Surgical History Abdominal Surgery: No AICD: No Arteriovenous Shunt: No Cardiac Surgery: No Coronary Artery Bypass Graft: No Ear Surgery: No Endocrine Surgery: No Eye Surgery: No Genitourinary Surgery: Yes (kidney stent ) Insulin Pump: No Joint Replacement: No Neurologic Surgery: No Pacemaker: No Other Surgery: Yes Social History Alcohol Use: Yes (OCC) Tobacco Use: Yes (1 1/2PPD) Substance Use: No Allergies-Medications (Allergen,Severity, Reaction): Coded Allergies: No Known Allergies (Verified , 02/24/17) Reported Meds & Prescriptions Reported Meds & Active Scripts Active Reported Xanax (Alprazolam) 0.5 Mg Tab 0.5 Mg PO BID PRN Review of Systems Except as stated in HPI: all other systems reviewed are Neg Musculoskeletal: Positive: Arthralgias, Pain Physical Exam Narrative GENERAL: Well-nourished, well-developed patient. SKIN: Focused skin assessment warm/dry. HEAD: Normocephalic. EYES: No scleral icterus. No injection or drainage. NECK: Supple, trachea midline. No JVD or lymphadenopathy. CARDIOVASCULAR: Regular rate and rhythm without murmurs, gallops, or rubs. RESPIRATORY: Breath sounds equal bilaterally. No accessory muscle use. GASTROINTESTINAL: Abdomen soft, non-tender, nondistended. MUSCULOSKELETAL: No cyanosis, mild edema noted over the first and second metacarpals and fingers. No erythema or warmth noted. Positive radial pulse, brisk is a 3 second capillary refill. BACK: Nontender without obvious deformity. No CVA tenderness. Data Data Last Documented VS Vital Signs Date Time Temp Pulse Resp B/P Pulse Ox O2 Delivery O2 Flow Rate FiO2 02/24/17 18:56 98.2 77 15 134/74 98 Orders Hand, Limited (2vws) (02/24/17 ) Ketorolac Inj (Toradol Inj) (02/24/17 19:45) MDM Medical Decision Making Medical Screen Exam Complete: Yes Emergency Medical Condition: Yes Interpretation(s) Vital Signs Date Time Temp Pulse Resp B/P Pulse Ox O2 Delivery O2 Flow Rate FiO2 02/24/17 18:56 98.2 77 15 134/74 98 Differential Diagnosis Rheumatoid arthritis versus gouty arthropathy versus cellulitis versus fracture versus other Narrative Course Patient is a 56-year-old male presenting for evaluation of left hand pain and swelling. No preceding injury or trauma. He does have a history of rheumatoid arthritis and gout which is likely causing his symptoms. Patient is requesting an x-ray and anti-inflammatory medication. Of note patient was seen and evaluated emergency department yesterday with various medical complaints one of which was not his hand swelling although he reports is been ongoing for 4 days. X-ray of the left hand ordered, Toradol ordered for pain. X-ray shows chronic degenerative changes, no acute fracture. Patient will be discharged home with anti-inflammatory medication. He is advised to follow-up with Dr. Pratt his primary care provider. He was encouraged to return to emergency department for any new or worsening symptoms. Patient is stable for discharge. Diagnosis Primary Impression: Arthritis Referrals: Primary Care Physician Patient Instructions: Arthritis (ED), General Instructions Additional Instructions: Follow-up with your primary doctor Take medications as directed Return to emergency department for any new or worsening symptoms Med/Other Pt SpecificInfo: Prescription(s) given Scripts Prednisone 50 Mg Tab50 Mg PO DAILY 3 Days Ref 0 Prov:Lorene Miller 02/24/17 Meloxicam 15 Mg Tab15 Mg PO DAILY 10 Days Ref 0 Prov:Lorene Miller 02/24/17 Disposition: 01 DISCHARGE HOME Condition: Stable Lorene Miller Feb 24, 2017 19:52
--- NOTE | 2017-02-24 20:25 | RADRPT ---
EXAM DATE/TIME: 02/24/2017 19:53 [facility] COMPARISON: No previous studies available for comparison. INDICATIONS : Hand inflammation. MEDICAL HISTORY : None. SURGICAL HISTORY : None. ENCOUNTER: Subsequent ACUITY: 1 week PAIN SCORE: 8/10 LOCATION: Right hand FINDINGS: No acute fracture. There is moderate to advanced arthropathy at the wrist joint, first metacarpophala ngeal joint and to a lesser extent at the second proximal interphalangeal joint and third metacarpoph alangeal joint. Findings probably represent a moderate to advanced osteoarthritis of the are some per iarticular erosive changes at the first MCP and also at the second finger and third MCP. Mild subluxa tion at the first MCP. CONCLUSION: 1. No acute fracture. Chronic arthropathy of the left hand characterized by some degenerative changes as well as some erosive changes suggesting an associated inflammatory arthropathy. Mild subluxation at the first MCP. Gordy Aguilera MD on February 24, 2017 at 20:21 Board Certified Radiologist. This report was verified electronically.
[2017-02-24] MEDS ORDERED: PRED50 PO (20:31)
[2017-02-24] MEDS ORDERED: MELO-1 PO (20:31)
[2017-02-24 20:34] VITALS: RESP 16
== END 2017-02-24 20:37 | disposition home or self-care (01) ==
LOC: NEPK 18:54
DX: M06.9 Rheumatoid arthritis, unspecified (principal); F17.210 Nicotine dependence, cigarettes, uncomplicated
CPT/HCPCS: 73120; 96372; 99284; J1885

== ENCOUNTER 2017-03-30 23:37 | Emergency (ER) | payer OTHER ==
[~2017-03-30] VITALS: Ht 172.7 cm; Wt 85.0 kg
[~2017-03-30 23:37] MED LIST changes: +PRED50 PO
[2017-03-30 23:49] VITALS: BP 133/74; PULSE 70; RESP 18; TEMP 98.3; O2SAT 98
--- NOTE | 2017-03-31 00:38 | PD ---
HPI Chief Complaint: Injury Time Seen by Provider: 00:34 Travel History International Travel<30 days: No Contact w/Intl Traveler<30days: No Traveled to known affect area: No History of Present Illness HPI Patient comes in complaining of a RA flare up in his right hand. Patient states it has been going on for approximately a week. Patient states that his is here being evaluated for possible blood clot, so he decided to get something checked out as well while he was here. Patient states he has not been able get in with his specialist secondary to transportation issues. Patient states he's been on Mobic and steroids for this which seems to alleviate his symptoms. Patient denies anything making it worse. Patient states this feels similar to previous RA flares. Denies any radiation of the pain. Denies any fevers or trauma. PFSH Past Medical History Hx Anticoagulant Therapy: No Arthritis: Yes (OA, RA) Asthma: No Autoimmune Disease: No Blood Disorders: No Anxiety: Yes Depression: Yes Heart Rhythm Problems: No Cancer: No Cardiac Catheterization: Yes (stent) High Cholesterol: Yes Chemotherapy: No Chest Pain: Yes Congestive Heart Failure: Yes Cirrhosis: Yes COPD: Yes (EMPHYSEMA) Cerebrovascular Accident: Yes (TIA) Diabetes: No Diminished Hearing: No Endocrine: No GERD: Yes Glaucoma: No Gout: Yes Genitourinary: Yes Hepatitis: No Hiatal Hernia: No Heparin Induced Thrombocytopen: No Hypertension: Yes Implanted Vascular Access Dvce: No Kidney Stones: Yes Neurologic: Yes (NEUROPATHY) Psychiatric: Yes Reproductive: No Immunizations Current: Yes Migraines: No Myocardial Infarction: Yes Renal Failure: No Schizophrenia: Yes Seizures: Yes Sickle Cell Disease: No Sleep Apnea: No Thyroid Disease: No Ulcer: No Past Surgical History Abdominal Surgery: No AICD: No Arteriovenous Shunt: No Cardiac Surgery: No Coronary Artery Bypass Graft: No Ear Surgery: No Endocrine Surgery: No Eye Surgery: No Genitourinary Surgery: Yes (kidney stent ) Insulin Pump: No Joint Replacement: No Neurologic Surgery: No Pacemaker: No Other Surgery: Yes Social History Alcohol Use: Yes (OCC) Tobacco Use: Yes (1 1/2PPD) Substance Use: No Allergies-Medications (Allergen,Severity, Reaction): Coded Allergies: No Known Allergies (Verified , 03/30/17) Reported Meds & Prescriptions Reported Meds & Active Scripts Active Mobic (Meloxicam) 7.5 Mg Tab 7.5 Mg PO DAILY Review of Systems Except as stated in HPI: all other systems reviewed are Neg Physical Exam Narrative GENERAL: Well-developed, overly nourished, in no acute distress, and non-ill appearing. SKIN: Focused skin assessment warm and dry. HEAD: Atraumatic. Normocephalic. EYES: Pupils equal and round. EOMI. No scleral icterus. No injection or drainage. ENT: No nasal bleeding or discharge. Mucous membranes pink and moist. NECK: Trachea midline. Supple. No nuclear rigidity. CARDIOVASCULAR: Regular rate and rhythm. No murmur appreciated. RESPIRATORY: No accessory muscle use. No respiratory distress. Clear to auscultation. Breath sounds equal bilaterally. GASTROINTESTINAL: Abdomen soft, non-tender, nondistended, and no guarding. Hepatic and splenic margins not palpable. Normal bowel sounds 4. No pulsatile mass. MUSCULOSKELETAL: No obvious deformities. No clubbing. No cyanosis. No edema. Decreased range of motion or ancillary pain. Patient is deviation of the fingers swollen joints consistent with RA. NEUROLOGICAL: Awake and alert. No obvious cranial nerve deficits. Motor grossly within normal limits. Normal speech. PSYCHIATRIC: Appropriate mood and affect; insight and judgment normal. Data Data Last Documented VS Vital Signs Date Time Temp Pulse Resp B/P Pulse Ox O2 Delivery O2 Flow Rate FiO2 03/30/17 23:49 98.3 70 18 133/74 98 Room Air Orders Dexamethasone Inj (Decadron Inj) (03/31/17 00:45) Ketorolac Inj (Toradol Inj) (03/31/17 00:45) Dexamethasone Inj (Decadron Inj) (03/31/17 00:45) MDM Medical Decision Making Medical Screen Exam Complete: Yes Emergency Medical Condition: Yes Medical Record Reviewed: Yes Differential Diagnosis Acute on chronic pain, gout, RA, other Narrative Course Patient medical records reviewed. Patient is noted to come to the ER frequently for medication for his RA. Patient in no obvious distress upon re-evaluation. Patient was asked if they wanted to speak to my attending, which the patient did not wish to do at this time. Any questions/concerns in reference to patient diagnosis/condition discussed and clarified prior to patient's discharge. Reinforced sheer importance of close follow up with patient's primary physician or primary care clinic. Instructed patient to return to ED immediately, if symptoms return/ worsen. Pt showed understanding of above instructions. Further instructions and recommendations were detailed in discharge paperwork. Pt ambulated without difficulty out of ED at discharge. Diagnosis Primary Impression: Chronic pain Qualified Code: G89.29 - Other chronic pain Patient Instructions: Chronic Pain (ED), General Instructions Additional Instructions: Follow-up with your primary care physician and/or specialist in 3-5 days for reevaluation and future refills of your medication. Take all medication as prescribed. Return to the emergency department if symptoms get worse. Med/Other Pt SpecificInfo: Prescription(s) given Scripts Meloxicam (Mobic)7.5 Mg Tab7.5 Mg PO DAILY #7 TAB Ref 0 Prov:Jac Anders MD 03/31/17 Disposition: 01 DISCHARGE HOME Condition: Stable Colin Domingo Mar 31, 2017 00:38
[2017-03-31] MEDS ORDERED: MOBI7.5T PO (00:40)
[2017-03-31] MEDS ORDERED: KETOROLAC TROMETHAMINE 60 MG/2 ML (IM) VIAL IM ONE (00:45)
[2017-03-31] MEDS ORDERED: DEXAMETHASONE SOD PHOS 4 MG/ML VIAL IM ONE (00:45)
[2017-03-31] MEDS ORDERED: DEXAMETHASONE SOD PHOS 4 MG/ML VIAL IV PUSH ONE (00:45)
== END 2017-03-31 00:53 | disposition home or self-care (01) ==
LOC: NEPD 23:37
DX: G89.29 Other chronic pain (principal); M06.9 Rheumatoid arthritis, unspecified; I50.9 Heart failure, unspecified; J44.9 Chronic obstructive pulmonary disease, unspecified; I10 Essential (primary) hypertension; F20.9 Schizophrenia, unspecified; G62.9 Polyneuropathy, unspecified; E78.00 Pure hypercholesterolemia, unspecified; F17.200 Nicotine dependence, unspecified, uncomplicated
CPT/HCPCS: 96372; 99284; J1100; J1885

== ENCOUNTER 2017-05-04 17:42 | Emergency (ER) | payer OTHER ==
[~2017-05-04 17:42] MED LIST changes: -ALPR.5 PO; -MELO-1 PO; +MOBI7.5T PO; -PRED50 PO
[2017-05-04 17:45] VITALS: BP 144/78; PULSE 89; RESP 18; TEMP 98.4; O2SAT 98
[2017-05-04 18:40] LABS: BLOOD, URINE MOD (NEG); COMMENT (UR) CULTURE INDICATED; CULTURE IF INDICATED CULTURE INDICATED; GLUCOSE,URINE NEG (NEG); KETONE, URINE NEG (NEG); NITRITE,URINE NEG (NEG); PH, URINE 5.5 (5.0-8.5); SQUAMOUS EPITHELIAL CELL URINE <1 /hpf (0-5); URINE COLOR YELLOW (YELLW/STRAW)
[2017-05-04] MEDS ORDERED: MORPHINE SULFATE 4 MG/ML INJ IV PUSH ONE (19:45)
[2017-05-04] MEDS ORDERED: SODIUM CHLOR 0.9% 1000 ML INJ 1,000 ML IV ONE (19:45)
[2017-05-04] MEDS ORDERED: KETOROLAC TROMETHAMINE 30 MG/ML (IVP) VIAL IV PUSH ONE (19:45)
[2017-05-04 20:34] VITALS: BP 134/88; PULSE 84; RESP 18; O2SAT 97
[2017-05-04 20:45] LABS: BASOPHIL # 0.1 TH/MM3 (0-0.2); EOSINOPHIL % 0.3 % (0.0-4.0); HEMATOCRIT 38.3 % (39.0-51.0); HEMO FLAGS DIFF FINAL; LYMPH % 9.4 % (9.0-44.0); LYMPHOCYTE # 1.1 TH/MM3 (1.0-4.8); MEAN CELL VOLUME 83.2 FL (80.0-100.0); MEAN CORPUSCULAR HEMOGLOBIN 27.9 PG (27.0-34.0); MEAN CORPUSCULAR HGB CONC 33.5 % (32.0-36.0); NEUT % 83.3 % (16.0-70.0); PLATELET COUNT 265 TH/MM3 (150-450); RED BLOOD COUNT 4.61 MIL/MM3 (4.50-5.90); RED CELL DISTRIBUTION WIDTH 16.3 % (11.6-17.2)
[2017-05-04 21:01] LABS: ALT (GPT) 49 U/L (12-78)
[2017-05-04 21:05] LABS: ALKALINE PHOSPHATASE 156 U/L (45-117); TOTAL BILIRUBIN ADULT 0.3 MG/DL (0.2-1.0)
[2017-05-04 21:15] LABS: ANION GAP 8 MEQ/L (5-15); AST (GOT) 40 U/L (15-37); BICARBONATE 23.8 MEQ/L (21.0-32.0); BLOOD UREA NITROGEN 41 MG/DL (7-18); CHLORIDE 104 MEQ/L (98-107); GLOMERULAR FILTRATION RATE 38 ML/MIN (>89); SODIUM (NA) 136 MEQ/L (136-145)
--- NOTE | 2017-05-04 21:23 | RADRPT ---
EXAM DATE/TIME: 05/04/2017 20:01 [facility] COMPARISON: CHEST SINGLE AP, May 09, 2016, 3:50. INDICATIONS : Chest pain. MEDICAL HISTORY : None. SURGICAL HISTORY : None. ENCOUNTER: Initial ACUITY: 1 day PAIN SCORE: 3/10 LOCATION: Bilateral chest FINDINGS: A single view of the chest demonstrates the lungs to be symmetrically aerated without evidence of mas s, infiltrate or effusion. The cardiomediastinal contours are unremarkable. Osseous structures are intact. CONCLUSION: Normal examination. Elio Edmonds MD on May 04, 2017 at 21:22 Board Certified Radiologist. This report was verified electronically.
[2017-05-04 21:37] VITALS: BP 136/90; PULSE 79; RESP 16; O2SAT 98
--- NOTE | 2017-05-04 21:46 | RADRPT ---
EXAM DATE/TIME: 05/04/2017 20:01 [facility] COMPARISON: No previous studies available for comparison. INDICATIONS : Left ankle pain and swelling with no injury. MEDICAL HISTORY : None. SURGICAL HISTORY : None. ENCOUNTER: Initial ACUITY: 1 week PAIN SCORE: 10/10 LOCATION: Left ankle. FINDINGS: The ankle appears grossly normally aligned. An acute fracture at the ankle is not seen. There is ext remely prominent hypertrophic change seen in the mid and hindfoot. The hypertrophic change involves the distal aspect of the talus and distal calcaneus and the navicular bone, cuneiform bones and cuboi d bone. There is some soft-tissue swelling in this region especially medially. There is some spur f ormation at the inferior aspect of the calcaneus at the plantar aponeurosis attachment site. There d oes appear to be some fusion at the subtalar joint. CONCLUSION: Suspected chronic change at the hind and midfoot as described above. This could be fr om a prior injury. If the patient has not had a prior injury Charcot foot could be considered. Elio Edmonds MD on May 04, 2017 at 21:22 Board Certified Radiologist. This report was verified electronically.
--- NOTE | 2017-05-04 21:51 | RADRPT ---
EXAM DATE/TIME: 05/04/2017 20:04 [facility] COMPARISON: HAND RIGHT COMPLETE ([id number]), May 09, 2016, 3:52. INDICATIONS : Right hand pain and swelling with no known injury MEDICAL HISTORY : None. SURGICAL HISTORY : None. ENCOUNTER: Initial ACUITY: 1 week PAIN SCORE: 10/10 LOCATION: Right hand. FINDINGS: There is hypertrophic change at the distal radial ulnar joint. There is some hypertrop hic change at the first interphalangeal joint with spur formation. Hypertrophic spurring is seen at t he fifth PIP joint. There does appear to be some joint space narrowing at the second through fifth M CP joints. Erosions are not seen in these regions. There is some cystic change at the capitate and sc aphoid. There does appear to be some chronic hypertrophic change at the distal aspect of the third d istal phalanx of the tuft. This could be from a prior injury. CONCLUSION: Areas of chronic hypertrophic change as described above. There is also some narrowin g of the MCP joints. These findings were present previously. Elio Edmonds MD on May 04, 2017 at 21:29 Board Certified Radiologist. This report was verified electronically.
--- NOTE | 2017-05-04 21:53 | PD ---
HPI Chief Complaint: Complaint Time Seen by Provider: 19:34 Travel History International Travel<30 days: No Contact w/Intl Traveler<30days: No Traveled to known affect area: No History of Present Illness HPI Patient is a 56-year-old male, with history of rheumatoid arthritis, who comes in with multiple complaints. Patient is a very poor historian, is unable to describe what is going on. He frequently talks about things from the past. His reports that his right hand has been swollen for the past few days. She just noticed that his left foot is swollen today. He says he has had some burning on urination. He also complains of some low back pain. He has been taking ibuprofen at home, without much relief. His reports that he has felt warm, but she has not taken his temperature. He says this is happened in the past, and usually improves with medications. He currently has no primary doctors. PFSH Past Medical History Hx Anticoagulant Therapy: No Arthritis: Yes (OA, RA) Asthma: No Autoimmune Disease: No Blood Disorders: No Anxiety: Yes Depression: Yes Heart Rhythm Problems: No Cancer: No Cardiac Catheterization: Yes (stent) Cardiovascular Problems: Yes High Cholesterol: Yes Chemotherapy: No Chest Pain: Yes Congestive Heart Failure: Yes Cirrhosis: Yes COPD: Yes (EMPHYSEMA) Cerebrovascular Accident: Yes (TIA) Diabetes: No Diminished Hearing: No Endocrine: No Gastrointestinal Disorders: Yes GERD: Yes Glaucoma: No Gout: Yes Genitourinary: Yes Hepatitis: No Hiatal Hernia: No Heparin Induced Thrombocytopen: No Hypertension: Yes Immune Disorder: Yes (RA) Implanted Vascular Access Dvce: No Kidney Stones: Yes Musculoskeletal: Yes (GOUT) Neurologic: Yes (NEUROPATHY) Psychiatric: Yes Reproductive: No Respiratory: Yes Immunizations Current: Yes Migraines: No Myocardial Infarction: Yes Renal Failure: No Schizophrenia: Yes Seizures: Yes Sickle Cell Disease: No Sleep Apnea: No Thyroid Disease: No Ulcer: No Tetanus Vaccination: > 5 Years Past Surgical History Abdominal Surgery: No AICD: No Arteriovenous Shunt: No Cardiac Surgery: No Coronary Artery Bypass Graft: No Ear Surgery: No Endocrine Surgery: No Eye Surgery: No Genitourinary Surgery: Yes (kidney stent ) Insulin Pump: No Joint Replacement: No Neurologic Surgery: No Pacemaker: No Other Surgery: Yes Social History Alcohol Use: Yes (OCC) Tobacco Use: Yes (1 1/2PPD) Substance Use: No Allergies-Medications (Allergen,Severity, Reaction): Coded Allergies: No Known Allergies (Verified , 05/04/17) Reported Meds & Prescriptions Reported Meds & Active Scripts Active No Active Prescriptions or Reported Medications Review of Systems Except as stated in HPI: all other systems reviewed are Neg General / Constitutional: Positive: Fever HENT: No: Headaches, Lightheadedness Cardiovascular: No: Chest Pain or Discomfort Respiratory: No: Shortness of Breath Gastrointestinal: No: Nausea, Vomiting, Abdominal Pain Genitourinary: Positive: Dysuria Musculoskeletal: Positive: Edema, Pain Skin: Positive Change in Pigmentation Neurologic: No: Weakness, Dizziness, Sensory Disturbance Physical Exam Narrative GENERAL: Awake and alert, in no acute distress. SKIN: Focused skin assessment warm/dry. Erythema over the right hand as well as the left foot. HEAD: Atraumatic. Normocephalic. EYES: Pupils equal and round. No scleral icterus. ENT: Mucous membranes pink and moist. NECK: Trachea midline. No JVD. CARDIOVASCULAR: Regular rate and rhythm. No murmur appreciated. RESPIRATORY: No accessory muscle use. Clear to auscultation. Breath sounds equal bilaterally. GASTROINTESTINAL: Abdomen soft, non-tender, nondistended. MUSCULOSKELETAL: No obvious deformities. No clubbing. No cyanosis. Swelling, erythema and warmth to the right hand. Decreased range of motion due to swelling and pain. Pain and swelling to the left foot. Pulses intact. NEUROLOGICAL: Awake and alert. No obvious cranial nerve deficits. Motor grossly within normal limits. Normal speech. PSYCHIATRIC: Appropriate mood and affect; insight and judgment normal. Data Data Last Documented VS Vital Signs Date Time Temp Pulse Resp B/P (MAP) Pulse Ox O2 Delivery O2 Flow Rate FiO2 05/04/17 21:37 79 16 136/90 (105) 98 Room Air 05/04/17 17:45 98.4 Orders Orders Urinalysis - C+S If Indicated (05/04/17 18:17) Urine Culture (05/04/17 18:18) Complete Blood Count With Diff (05/04/17 19:45) Comprehensive Metabolic Panel (05/04/17 19:45) Gc And Chlamydia Pcr (05/04/17 19:45) Ct Abd/Pel W/O Iv Contrast (05/04/17 ) Sodium Chlor 0.9% 1000 Ml Inj (Ns 1000 M (05/04/17 19:45) Ketorolac Inj (Toradol Inj) (05/04/17 19:45) Morphine Inj (Morphine Inj) (05/04/17 19:45) Hand, Complete ([id number]) (05/04/17 ) Ankle, Complete (Tof0sgc) (05/04/17 ) Chest, Single Ap (05/04/17 ) Troponin I (05/04/17 19:45) Acetamin-Hydrocod 325-5 Mg ([place] 5-325 (05/04/17 23:00) Labs Laboratory Tests Test 05/04/17 18:18 05/04/17 20:20 Urine Color YELLOW Urine Turbidity CLEAR Urine pH 5.5 Urine Specific [place] 1.017 Urine Protein 30 mg/dL Urine Glucose (UA) NEG mg/dL Urine Ketones NEG mg/dL Urine Occult Blood MOD Urine Nitrite NEG Urine Bilirubin NEG Urine Urobilinogen 2.0 MG/DL Urine Leukocyte Esterase SMALL Urine RBC 15 /hpf Urine WBC 17 /hpf Urine Squamous Epithelial Cells <1 /hpf Microscopic Urinalysis Comment CULTURE INDICATED Chlamydia trachomatis DNA (PCR) NOT DETECTED Neisseria gonorrhoeae DNA (PCR) NOT DETECTED White Blood Count 12.0 TH/MM3 Red Blood Count 4.61 MIL/MM3 Hemoglobin 12.8 GM/DL Hematocrit 38.3 % Mean Corpuscular Volume 83.2 FL Mean Corpuscular Hemoglobin 27.9 PG Mean Corpuscular Hemoglobin Concent 33.5 % Red Cell Distribution Width 16.3 % Platelet Count 265 TH/MM3 Mean Platelet Volume 9.0 FL Neutrophils (%) (Auto) 83.3 % Lymphocytes (%) (Auto) 9.4 % Monocytes (%) (Auto) 6.0 % Eosinophils (%) (Auto) 0.3 % Basophils (%) (Auto) 1.0 % Neutrophils # (Auto) 10.0 TH/MM3 Lymphocytes # (Auto) 1.1 TH/MM3 Monocytes # (Auto) 0.7 TH/MM3 Eosinophils # (Auto) 0.0 TH/MM3 Basophils # (Auto) 0.1 TH/MM3 CBC Comment DIFF FINAL Differential Comment Blood Urea Nitrogen 41 MG/DL Creatinine 1.86 MG/DL Random Glucose 107 MG/DL Total Protein 8.3 GM/DL Albumin 3.2 GM/DL Calcium Level 9.4 MG/DL Alkaline Phosphatase 156 U/L Aspartate Amino Transf (AST/SGOT) 40 U/L Alanine Aminotransferase (ALT/SGPT) 49 U/L Total Bilirubin 0.3 MG/DL Sodium Level 136 MEQ/L Potassium Level 4.0 MEQ/L Chloride Level 104 MEQ/L Carbon Dioxide Level 23.8 MEQ/L Anion Gap 8 MEQ/L Estimat Glomerular Filtration Rate 38 ML/MIN Troponin I LESS THAN 0.02 NG/ML MDM Medical Decision Making Medical Screen Exam Complete: Yes Emergency Medical Condition: Yes Medical Record Reviewed: Yes Differential Diagnosis Rheumatoid flare versus gout flare versus gonorrhea versus cellulitis Narrative Course Patient is a 56-year-old male comes in complaining of pain and swelling to his right hand as well as his left foot. He also complains of some dysuria. Exam shows erythema and warmth to the right hand as well as the left foot. X-ray of the hand and ankle show no acute abnormalities. IV established, labs sent. Labs show a creatinine of 1.8, which is slightly elevated from his previous of 1.4. He is given IV fluids, pain medicine. CT of the abdomen and pelvis performed shows a 6 mm stone within the renal pelvis, no evidence of obstruction or hydronephrosis. Patient informed of his results. He'll be discharged with a prescription for a Medrol Dosepak. Given prescription for pain medicine as well as an antibiotic for his dirty urine. He is advised follow-up with a primary care doctor. Advised to return to the ED as needed for any worsening symptoms. Diagnosis Primary Impression: Rheumatoid arthritis flare Additional Impressions: Gout Qualified Codes: M10.9 - Gout, unspecified UTI (urinary tract infection) Qualified Codes: N30.00 - Acute cystitis without hematuria Referrals: [facility] call for appointment Patient Instructions: General Instructions, Gout (ED), Rheumatoid Arthritis (ED ), Urinary Tract Infection in Men (ED) Additional Instructions: Take all of your antibiotic. Take the steroids until completion. Take pain medicine as needed. Follow-up with the is a clinic. Return to the ED as needed for any worsening symptoms. Scripts Ciprofloxacin (Cipro) 500 Mg Tab 500 MG PO BID for Infection for 7 Days, TAB 0 Refills Prov: Betsy Chan MD 05/05/17 Hydrocodone-Acetaminophen (Lortab) 5-325 Mg Tab 1 TAB PO Q6H Y for PAIN, #10 TAB 0 Refills Prov: Betsy Chan MD 05/05/17 Methylprednisolone Dosepak (Medrol Dosepak) 4 Mg Dspk 4 MG PO DIRECTED, #1 DSPK 0 Refills Per Pharmacist direction Prov: Betsy Chan MD 05/05/17 Disposition: 01 DISCHARGE HOME Condition: Stable Betsy Chan MD May 04, 2017 21:52
[2017-05-04] MEDS ORDERED: ACETAMINOPHEN/HYDROcodone 325 MG/5 MG TAB PO ONE (23:00)
[2017-05-05] LABS: CHLAMYDIA PCR NOT DETECTED (NOT DETECT); NEISSERIA PCR NOT DETECTED (NOT DETECT)
--- NOTE | 2017-05-05 00:03 | RADRPT ---
EXAM DATE/TIME: 05/04/2017 21:45 [facility] COMPARISON: CT ABDOMEN & PELVIS W/O CONTRAST, April 30, 2016, 5:46. INDICATIONS : Hematuria and abdominal pain. ORAL CONTRAST: No oral contrast ingested. RADIATION DOSE: 8.40 CTDIvol (mGy) MEDICAL HISTORY : Seizures. Cardiovascular disease Congestive heart failure.Renal calculi. TIA. Hypertension. SURGICAL HISTORY : Cardiac stent. ENCOUNTER: Initial ACUITY: 1 day PAIN SCALE: 7/10 LOCATION: Left flank TECHNIQUE: Volumetric scanning of the abdomen and pelvis was performed. Using automated exposure control and ad justment of the mA and/or kV according to patient size, radiation dose was kept as low as reasonably achievable to obtain optimal diagnostic quality images. DICOM format image data is available electro nically for review and comparison. FINDINGS: LOWER LUNGS: The visualized lower lungs are clear. LIVER: Mild diffuse low density without lesion. There is no dilation of the biliary tree. There are calcif ied stones in the gallbladder. No gallbladder distention or inflammatory change is present. SPLEEN: Normal size without lesion. PANCREAS: Within normal limits. KIDNEYS: Normal in size and shape. There is no mass or hydronephrosis. There are 6 non-obstructing right leah l stones measuring up to 3 mm. There are 5 non-obstructing left renal stones measuring up to 6 mm. En larged extrarenal pelves are present bilaterally. There is no hydroureter or ureteral stone. ADRENAL GLANDS: Within normal limits. VASCULAR: There is no aortic aneurysm. There is mild atherosclerotic disease. BOWEL/MESENTERY: The stomach, small bowel, and colon demonstrate no acute abnormality. There is no free intraperitone al air or fluid. There is sigmoid diverticulosis. ABDOMINAL WALL: Within normal limits. RETROPERITONEUM: There is no lymphadenopathy. BLADDER: No wall thickening or mass. REPRODUCTIVE: Within normal limits. INGUINAL: There is no lymphadenopathy. There is a small fat-containing right inguinal hernia. MUSCULOSKELETAL: There are degenerative changes of the lumbar spine. CONCLUSION: 1. No acute finding is identified within the abdomen or pelvis. There are bilateral nonobstructing re nal stones measuring up to 6 mm. No ureteral stones or signs of obstruction are identified. 2. Nonacute findings include mild hepatic steatosis, cholelithiasis, and sigmoid diverticulosis. Elio Edmonds MD on May 04, 2017 at 22:56 Board Certified Radiologist. This report was verified electronically.
[2017-05-05] MEDS ORDERED: HYDR-3533 PO (00:15)
[2017-05-05] MEDS ORDERED: CIPR-9 PO (00:15)
[2017-05-05] MEDS ORDERED: MEDR4PAK PO (00:15)
== END 2017-05-05 00:32 | disposition home or self-care (01) ==
LOC: NEPD 17:42
DX: M06.9 Rheumatoid arthritis, unspecified (principal); M10.9 Gout, unspecified; N30.00 Acute cystitis without hematuria; N20.0 Calculus of kidney; M54.5 Low back pain; I10 Essential (primary) hypertension; K74.60 Unspecified cirrhosis of liver; E78.00 Pure hypercholesterolemia, unspecified; I25.2 Old myocardial infarction; F17.200 Nicotine dependence, unspecified, uncomplicated; Z87.39 Personal history of other diseases of the musculoskeletal system and connective tissue; Z86.59 Personal history of other mental and behavioral disorders; Z86.79 Personal history of other diseases of the circulatory system; Z87.09 Personal history of other diseases of the respiratory system; Z87.19 Personal history of other diseases of the digestive system; Z87.448 Personal history of other diseases of urinary system; Z86.69 Personal history of other diseases of the nervous system and sense organs
CPT/HCPCS: 71010; 73130; 73610; 74176; 80053; 81001; 84484; 85025; 87086; 87491; 87591; 96361; 96374; 96375; 99285; J1885; J2270; J7030

== ENCOUNTER 2017-07-09 13:02 | Emergency (ER) | payer SELFPAY ==
[~2017-07-09] VITALS: Ht 175.3 cm; Wt 92.0 kg
[~2017-07-09 13:02] MED LIST changes: +CIPR-9 PO; +HYDR-3533 PO; +MEDR4PAK PO; -MOBI7.5T PO
[2017-07-09 13:04] VITALS: BP 172/108; PULSE 84; RESP 16; TEMP 98.2; O2SAT 98
[2017-07-09] MEDS ORDERED: KETOROLAC TROMETHAMINE 60 MG/2 ML (IM) VIAL IM ONE (13:45)
[2017-07-09] MEDS ORDERED: NAPR500T2 PO (14:21)
[2017-07-09] MEDS ORDERED: PRED20 PO (14:21)
--- NOTE | 2017-07-09 14:22 | PD ---
HPI . Gout Chief Complaint: Pain: Acute or Chronic Time Seen by Provider: 13:32 Travel History International Travel<30 days: No Contact w/Intl Traveler<30days: No Traveled to known affect area: No History of Present Illness HPI 56-year-old male presents emergency department for evaluation of gout exacerbation in his left great toe that started yesterday after he was drinking wine coolers at home. Patient states he has had gout in the past and this is always cause gout presents. Patient denies any fevers, chills, chest pain, shortness breath, abdominal pain, nausea, vomiting or diarrhea. PFSH Past Medical History Hx Anticoagulant Therapy: No Arthritis: Yes (OA, RA) Asthma: No Autoimmune Disease: No Blood Disorders: No Anxiety: Yes Depression: Yes Heart Rhythm Problems: No Cancer: No Cardiac Catheterization: Yes (stent) Cardiovascular Problems: Yes High Cholesterol: Yes Chemotherapy: No Chest Pain: Yes Congestive Heart Failure: Yes Cirrhosis: Yes COPD: Yes (EMPHYSEMA) Cerebrovascular Accident: Yes (TIA) Diabetes: No Diminished Hearing: No Endocrine: No Gastrointestinal Disorders: Yes GERD: Yes Glaucoma: No Gout: Yes Genitourinary: Yes Hepatitis: No Hiatal Hernia: No Heparin Induced Thrombocytopen: No Hypertension: Yes Immune Disorder: Yes (RA) Implanted Vascular Access Dvce: No Kidney Stones: Yes Musculoskeletal: Yes (GOUT) Neurologic: Yes (NEUROPATHY) Psychiatric: Yes Reproductive: No Respiratory: Yes Immunizations Current: Yes Migraines: No Myocardial Infarction: Yes Renal Failure: No Schizophrenia: Yes Seizures: Yes Sickle Cell Disease: No Sleep Apnea: No Thyroid Disease: No Ulcer: No Past Surgical History Abdominal Surgery: No AICD: No Arteriovenous Shunt: No Cardiac Surgery: No Coronary Artery Bypass Graft: No Ear Surgery: No Endocrine Surgery: No Eye Surgery: No Genitourinary Surgery: Yes (kidney stent ) Insulin Pump: No Joint Replacement: No Neurologic Surgery: No Pacemaker: No Other Surgery: Yes Social History Alcohol Use: Yes (OCC) Tobacco Use: Yes (1 1/2PPD) Substance Use: No Allergies-Medications (Allergen,Severity, Reaction): Coded Allergies: No Known Allergies (Verified Adverse Reaction, Unknown, 07/09/17) Reported Meds & Prescriptions Reported Meds & Active Scripts Active Naproxen 500 Mg Tab 500 Mg PO BID 5 Days Prednisone 20 Mg Tab 40 Mg PO DAILY 5 Days Take 40 mg (2 tablets) daily for 5 days Cipro (Ciprofloxacin HCl) 500 Mg Tab 500 Mg PO BID 7 Days Lortab (Hydrocodone-Acetaminophen) 5-325 Mg Tab 1 Tab PO Q6H PRN Medrol Dosepak (Methylprednisolone) 4 Mg Dspk 4 Mg PO DIRECTED Per Pharmacist direction Review of Systems Except as stated in HPI: all other systems reviewed are Neg Physical Exam Narrative GENERAL: Well-nourished, well-developed 56-year-old male patient in no acute distress. Nontoxic appearing. SKIN: Focused skin assessment warm/dry. HEAD: Normocephalic. Atraumatic. EYES: No scleral icterus. No injection or drainage. NECK: Supple, trachea midline. No JVD or lymphadenopathy. CARDIOVASCULAR: Regular rate and rhythm without murmurs, gallops, or rubs. Pedal pulses +2 bilaterally. RESPIRATORY: Breath sounds equal bilaterally. No accessory muscle use. GASTROINTESTINAL: Abdomen soft, non-tender, nondistended. MUSCULOSKELETAL: Left great toe erythematous and mildly edematous. No obvious deformity, cyanosis, ecchymosis. Data Data Last Documented VS Vital Signs Date Time Temp Pulse Resp B/P (MAP) Pulse Ox O2 Delivery O2 Flow Rate FiO2 07/09/17 13:04 98.2 84 16 172/108 (129) 98 Orders Orders Ketorolac Inj (Toradol Inj) (07/09/17 13:45) Ed Discharge Order (07/09/17 14:22) [facility] Medical Decision Making Medical Screen Exam Complete: Yes Emergency Medical Condition: Yes Differential Diagnosis Differential diagnosis include but not limited to gouty arthritis, gout, cellulitis, arthritis, drug seeking behavior Narrative Course 56-year-old male patient presents emergency department for evaluation of left great toe pain and swelling that started last night after drinking wine coolers at home. Patient has history of gout and states this is how his gout presents. Patient currently doesn't have insurance and cannot follow up with his primary care. Patient asked for "stronger" pain medication than ever before because he doesn't want to feel pain at all. Left foot is neurovascularly intact. Left great toe is mildly erythematous and mildly edematous. Patient denies any injuries, falls, traumas to the right great toe. Patient will be given an IM injection of Toradol and discharged home with a prescription for prednisone and given information to follow-up with the [facility]. Diagnosis Primary Impression: Gout Qualified Codes: M10.9 - Gout, unspecified Additional Impression: Drug-seeking behavior Referrals: [facility] Primary Care Physician Patient Instructions: General Instructions, Gout (ED) Additional Instructions: Please return to emergency department if your symptoms return or worsen. Follow up with your primary care provider. [facility] as a great community resource. Take medications as prescribed. Med/Other Pt SpecificInfo: Prescription(s) given Scripts Naproxen (Naproxen) 500 Mg Tab 500 MG PO BID for 5 Days, #10 TAB 0 Refills Prov: Betsy Epstein 07/09/17 Prednisone (Prednisone) 20 Mg Tab 40 MG PO DAILY for 5 Days, #10 TAB 0 Refills Take 40 mg (2 tablets) daily for 5 days Prov: Betsy Epstein 07/09/17 Disposition: 01 DISCHARGE HOME Condition: Stable Betsy Epstein Jul 09, 2017 14:22
== END 2017-07-09 14:40 | disposition home or self-care (01) ==
LOC: NEPK 13:02
DX: M10.9 Gout, unspecified (principal); I10 Essential (primary) hypertension; E78.00 Pure hypercholesterolemia, unspecified; I25.2 Old myocardial infarction; F17.200 Nicotine dependence, unspecified, uncomplicated; Z76.5 Malingerer [conscious simulation]; Z87.39 Personal history of other diseases of the musculoskeletal system and connective tissue; Z86.59 Personal history of other mental and behavioral disorders; Z86.79 Personal history of other diseases of the circulatory system; Z87.19 Personal history of other diseases of the digestive system; Z87.09 Personal history of other diseases of the respiratory system; Z87.448 Personal history of other diseases of urinary system; Z86.69 Personal history of other diseases of the nervous system and sense organs
CPT/HCPCS: 96372; 99284; J1885

== ENCOUNTER 2017-08-29 16:44 | Emergency (ER) | payer SELFPAY ==
[~2017-08-29] VITALS: Ht 172.7 cm; Wt 92.0 kg
[~2017-08-29 16:44] MED LIST changes: +NAPR500T2 PO; +PRED20 PO
[2017-08-29 16:46] VITALS: BP 172/98; PULSE 87; RESP 14; TEMP 97.9; O2SAT 97
[2017-08-29] MEDS ORDERED: MORPHINE SULFATE 2 MG/ML INJ IV PUSH ONE (18:45)
[2017-08-29] MEDS ORDERED: SODIUM CHLORIDE 0.9% FLUSH 10 ML FLUSH IVF PRN (18:45)
[2017-08-29 19:20] VITALS: O2SAT 100
[2017-08-29 19:28] VITALS: BP 176/116
[2017-08-29] MEDS ORDERED: ASPIRIN 81 MG CHEW TAB PO ONE (19:30)
--- NOTE | 2017-08-29 19:30 | PD ---
HPI Chief Complaint: Medical Clearance Time Seen by Provider: 18:37 Travel History International Travel<30 days: No Contact w/Intl Traveler<30days: No Traveled to known affect area: No History of Present Illness HPI 56-year-old male with history of rheumatoid arthritis, here for evaluation of several different complaints. The patient reports feeling fevers and chills and feels as though he may have pneumonia. He also is having pain and swelling to his left leg which has been worsening over the last 4 days. He denies trauma. While talking with him he began to complain of a sharp/cramping/ pressure pain in his left chest which resolved after several seconds. He denies history of cardiac disease, however states there is family history of cardiac disease in his father. No history of DVT or PE. No hemoptysis. PFSH Past Medical History Hx Anticoagulant Therapy: No Arthritis: Yes (OA, RA) Asthma: No Autoimmune Disease: No Blood Disorders: No Anxiety: Yes Depression: Yes Heart Rhythm Problems: No Cancer: No Cardiac Catheterization: Yes (stent) Cardiovascular Problems: Yes High Cholesterol: Yes Chemotherapy: No Chest Pain: Yes Congestive Heart Failure: Yes Cirrhosis: Yes COPD: Yes (EMPHYSEMA) Cerebrovascular Accident: Yes Diabetes: No Diminished Hearing: No Endocrine: No Gastrointestinal Disorders: Yes GERD: Yes Glaucoma: No Gout: Yes Genitourinary: Yes Hepatitis: No Hiatal Hernia: No Heparin Induced Thrombocytopen: No Hypertension: Yes Immune Disorder: Yes (RA) Implanted Vascular Access Dvce: No Kidney Stones: Yes Medical other: No Musculoskeletal: Yes (GOUT) Neurologic: Yes (NEUROPATHY) Psychiatric: Yes Reproductive: No Respiratory: Yes Immunizations Current: Yes Migraines: No Myocardial Infarction: Yes Renal Failure: No Schizophrenia: Yes Seizures: Yes Sickle Cell Disease: No Sleep Apnea: No Thyroid Disease: No Ulcer: No Past Surgical History Abdominal Surgery: No AICD: No Arteriovenous Shunt: No Cardiac Surgery: No Coronary Artery Bypass Graft: No Ear Surgery: No Endocrine Surgery: No Eye Surgery: No Genitourinary Surgery: Yes (kidney stent ) Gynecologic Surgery: No Insulin Pump: No Joint Replacement: No Neurologic Surgery: No Oral Surgery: No Pacemaker: No Thoracic Surgery: No Other Surgery: Yes Social History Alcohol Use: Yes (OCC) Tobacco Use: Yes (1 1/2PPD) Substance Use: No Allergies-Medications (Allergen,Severity, Reaction): Coded Allergies: No Known Allergies (Verified Adverse Reaction, Unknown, 08/29/17) Reported Meds & Prescriptions Reported Meds & Active Scripts Active Naproxen 500 Mg Tab 500 Mg PO BID 5 Days Prednisone 20 Mg Tab 40 Mg PO DAILY 5 Days Take 40 mg (2 tablets) daily for 5 days Cipro (Ciprofloxacin HCl) 500 Mg Tab 500 Mg PO BID 7 Days Lortab (Hydrocodone-Acetaminophen) 5-325 Mg Tab 1 Tab PO Q6H PRN Medrol Dosepak (Methylprednisolone) 4 Mg Dspk 4 Mg PO DIRECTED Per Pharmacist direction Review of Systems Except as stated in HPI: all other systems reviewed are Neg Physical Exam Narrative GENERAL: Well-developed, well-nourished, comfortable, no apparent distress. SKIN: Focused skin assessment warm/dry. No rash. HEAD: Atraumatic. Normocephalic. EYES: Pupils equal and round. No scleral icterus. No injection or drainage. ENT: Mucous membranes pink and moist. NECK: Trachea midline. No JVD. CARDIOVASCULAR: Regular rate and rhythm. Bilateral dorsalis pedis pulses are brisk and equal. RESPIRATORY: No accessory muscle use. Clear to auscultation. Breath sounds equal bilaterally. GASTROINTESTINAL: Abdomen soft, non-tender, nondistended. MUSCULOSKELETAL: No obvious deformities. No clubbing. No cyanosis. Moderate bilateral lower extremity edema, left greater than right with moderate left calf tenderness, no crepitus, no warmth or erythema. All compartments in bilateral lower extremities are supple. NEUROLOGICAL: Awake and alert. No obvious cranial nerve deficits. Motor grossly within normal limits. Normal speech. PSYCHIATRIC: Appropriate mood and affect; insight and judgment normal. Data Data Last Documented VS Vital Signs Date Time Temp Pulse Resp B/P (MAP) Pulse Ox O2 Delivery O2 Flow Rate FiO2 08/29/17 19:28 176/116 (136) 08/29/17 19:20 100 Room Air 08/29/17 16:46 97.9 87 14 Orders Orders Electrocardiogram (08/29/17 18:43) Ckmb (Isoenzyme) Profile (08/29/17 18:43) Complete Blood Count With Diff (08/29/17 18:43) Comprehensive Metabolic Panel (08/29/17 18:43) Prothrombin Time / Inr (Pt) (08/29/17 18:43) Act Partial Throm Time (Ptt) (08/29/17 18:43) Troponin I (08/29/17 18:43) Chest, Single Ap (08/29/17 18:43) Ecg Monitoring (08/29/17 18:43) Bilateral Bp Monitoring (08/29/17 18:43) Iv Access Insert/Monitor (08/29/17 18:43) Oximetry (08/29/17 18:43) Oxygen Administration (08/29/17 18:43) Sodium Chloride 0.9% Flush (Ns Flush) (08/29/17 18:45) Morphine Inj (Morphine Inj) (08/29/17 18:45) Us Leg Venous Doppler Bilat (08/29/17 ) B-Type Natriuretic Peptide (08/29/17 18:43) Aspirin Chew (Aspirin Chew) (08/29/17 19:30) CKMB (08/29/17 19:25) CKMB% (08/29/17 19:25) Labs Laboratory Tests Test 08/29/17 18:43 08/29/17 19:25 White Blood Count 12.6 TH/MM3 Red Blood Count 4.60 MIL/MM3 Hemoglobin 12.7 GM/DL Hematocrit 37.3 % Mean Corpuscular Volume 81.2 FL Mean Corpuscular Hemoglobin 27.6 PG Mean Corpuscular Hemoglobin Concent 34.0 % Red Cell Distribution Width 15.7 % Platelet Count 291 TH/MM3 Mean Platelet Volume 8.5 FL Neutrophils (%) (Auto) 80.8 % Lymphocytes (%) (Auto) 11.2 % Monocytes (%) (Auto) 6.3 % Eosinophils (%) (Auto) 1.4 % Basophils (%) (Auto) 0.3 % Neutrophils # (Auto) 10.2 TH/MM3 Lymphocytes # (Auto) 1.4 TH/MM3 Monocytes # (Auto) 0.8 TH/MM3 Eosinophils # (Auto) 0.2 TH/MM3 Basophils # (Auto) 0.0 TH/MM3 CBC Comment DIFF FINAL Differential Comment Prothrombin Time 10.7 SEC Prothromb Time International Ratio 1.1 RATIO Activated Partial Thromboplast Time 30.6 SEC Blood Urea Nitrogen 29 MG/DL Creatinine 1.57 MG/DL Random Glucose 87 MG/DL Total Protein 8.5 GM/DL Albumin 3.3 GM/DL Calcium Level 9.5 MG/DL Alkaline Phosphatase 108 U/L Aspartate Amino Transf (AST/SGOT) 29 U/L Alanine Aminotransferase (ALT/SGPT) 42 U/L Total Bilirubin 0.5 MG/DL Sodium Level 135 MEQ/L Potassium Level 4.3 MEQ/L Chloride Level 101 MEQ/L Carbon Dioxide Level 26.0 MEQ/L Anion Gap 8 MEQ/L Estimat Glomerular Filtration Rate 46 ML/MIN Total Creatine Kinase 304 U/L Creatine Kinase MB 2.4 NG/ML Troponin I LESS THAN 0.02 NG/ML MDM Medical Decision Making Medical Screen Exam Complete: Yes Emergency Medical Condition: Yes Interpretation(s) EKG: Sinus, rate 83, normal axis, normal intervals, no acute ischemic abnormality. Differential Diagnosis DVT, pneumonia, pulmonary edema/fluid overload Narrative Course Initial vital signs show heart rate 87, blood pressure 172/98, pulse ox 97% on room air, tympanic temp of 97.9 from high. CBC: WBC 12.6, hemoglobin 12.7, hematocrit 37.3, platelets 291, neutrophils 81%. CMP is remarkable for BUN 29, creatinine 1.57, GFR 46 which is around his baseline, otherwise unremarkable. Cardiac enzymes are negative. Chest x-ray: No acute cardio pulmonary disease. Bilateral lower extremity venous duplex: Negative for DVT in the right and left leg. Patient was made aware of all findings. He is resting comfortably. He did have a few second episode of left-sided chest pain while I was interviewing him , however he described this as a muscle cramp. I do not believe this pain was cardiac in nature. His EKG shows no signs of ischemia. Cardiac enzymes are negative. He does have some bilateral lower extremity edema, left slightly greater than right, however all compartments in the lower extremities are supple and there are no signs of cellulitis. While in the emergency department the patient came agitated and her hematocrit of with his . He then became anxious to go home. At this point I believe he is stable for discharge home with outpatient follow-up with his primary care physician this week. He was advised on when to return to the emergency department. He verbalizes understanding and agreement with plan. Diagnosis Primary Impression: Leg pain Qualified Codes: M79.605 - Pain in left leg Additional Impression: Leg edema Referrals: Primary Care Physician 3 days Additional Instructions: Follow-up with your primary care physician this week. Return to the emergency department for worsening symptoms or any other concerns. Disposition: DISCHARGE HOME Condition: Stable Talib John MD Aug 29, 2017 19:30
[2017-08-29 19:54] LABS: AUTOMATED NEUTROPHIL # 10.2 TH/MM3 (1.8-7.7); BASOPHIL % 0.3 % (0.0-2.0); EOSINOPHIL # 0.2 TH/MM3 (0-0.4); EOSINOPHIL % 1.4 % (0.0-4.0); HEMATOCRIT 37.3 % (39.0-51.0); HEMOGLOBIN 12.7 GM/DL (13.0-17.0); LYMPH % 11.2 % (9.0-44.0); LYMPHOCYTE # 1.4 TH/MM3 (1.0-4.8); MEAN CELL VOLUME 81.2 FL (80.0-100.0); MEAN CORPUSCULAR HEMOGLOBIN 27.6 PG (27.0-34.0); MEAN PLATELET VOLUME 8.5 FL (7.0-11.0); MONO % 6.3 % (0.0-8.0); MONOCYTE # 0.8 TH/MM3 (0-0.9); NEUT % 80.8 % (16.0-70.0); PLATELET COUNT 291 TH/MM3 (150-450); RED CELL DISTRIBUTION WIDTH 15.7 % (11.6-17.2); WHITE BLOOD COUNT 12.6 TH/MM3 (4.0-11.0)
[2017-08-29 20:01] LABS: INTERNATIONAL NORMALIZED RATIO 1.1 RATIO; PROTHROMBIN TIME - PATIENT 10.7 SEC (9.8-11.6)
[2017-08-29 20:08] LABS: ALBUMIN 3.3 GM/DL (3.4-5.0); AST (GOT) 29 U/L (15-37); BLOOD UREA NITROGEN 29 MG/DL (7-18); CALCIUM 9.5 MG/DL (8.5-10.1); CHLORIDE 101 MEQ/L (98-107); CREATININE 1.57 MG/DL (0.60-1.30); GLOMERULAR FILTRATION RATE 46 ML/MIN (>89); GLUCOSE,RANDOM 87 MG/DL (74-106); SODIUM (NA) 135 MEQ/L (136-145)
[2017-08-29 20:09] LABS: ALT (GPT) 42 U/L (12-78)
[2017-08-29 20:12] LABS: ALKALINE PHOSPHATASE 108 U/L (45-117); TOTAL BILIRUBIN ADULT 0.5 MG/DL (0.2-1.0); TOTAL PROTEIN 8.5 GM/DL (6.4-8.2); TROPONIN I LESS THAN 0.02 NG/ML (0.02-0.05)
--- NOTE | 2017-08-29 20:20 | RADRPT ---
EXAM DATE/TIME: 08/29/2017 19:17 [facility] COMPARISON: CHEST SINGLE AP, May 04, 2017, 20:01. INDICATIONS : Chest Pain MEDICAL HISTORY : None. SURGICAL HISTORY : None. ENCOUNTER: Initial ACUITY: 1 day PAIN SCORE: 6/10 LOCATION: Bilateral chest FINDINGS: Single AP view of the chest. The lungs are clear. Cardiomediastinal silhouette within normal limits. No evidence of pleural effusion or pneumothorax. CONCLUSION: No acute cardiopulmonary disease identified. Elvis Pizarro MD on August 29, 2017 at 20:18 Board Certified Radiologist. This report was verified electronically.
--- NOTE | 2017-08-29 20:26 | RADRPT ---
EXAM DATE/TIME: 08/29/2017 19:16 [facility] COMPARISON: US LEG BILATERAL VENOUS DOPPLER, April 28, 2016, 21:14. INDICATIONS : Bilateral leg edema. MEDICAL HISTORY : Hypercholesterolemia. Chronic obstructive pulmonary disease. Gastroesophageal reflux disease. Cerebro vascular accident. Seizures. Myocardial infarction. Congestive heart failure. Hypertension. Emph ysema. Kidney stones. Arthritis. Rheumatiod arthritis. SURGICAL HISTORY : Kidney stent. ENCOUNTER: Initial ACUITY: 2 day PAIN SCORE: 8/10 LOCATION: Bilateral legs. TECHNIQUE: Venous ultrasound of the left and right leg was performed from the inguinal ligament to the proximal calf. Real-time, color Doppler and spectral tracing, compression and augmentation techniques were us ed. FINDINGS: RIGHT LEG: There is normal compressibility of the deep venous system from the inguinal region to the proximal ca lf. No echogenic clot is seen in the lumen of the common femoral, femoral, popliteal, and posterior tibial veins. There is a normal response of the venous system to proximal and distal augmentation an d respiration. LEFT LEG: There is normal compressibility of the deep venous system from the inguinal region to the proximal ca lf. No echogenic clot is seen in the lumen of the common femoral, femoral, popliteal, and posterior tibial veins. There is a normal response of the venous system to proximal and distal augmentation an d respiration. CONCLUSION: No evidence of lower extremity DVT on the right or left. Elvis Pizarro MD on August 29, 2017 at 20:20 Board Certified Radiologist. This report was verified electronically.
--- NOTE | 2017-08-30 21:54 | EKG ---
Date Performed: 08/29/2017 Time Performed: 19:11:28 PTAGE: 56 years EKG: Sinus rhythm NORMAL ECG PREVIOUS TRACING : 01/20/2017 11.51 Compared to prior tracing no significant change DOCTOR: Marian Mendoza Interpretating Date/Time 08/30/2017 21:53:17
== END 2017-08-29 21:12 | disposition home or self-care (01) ==
LOC: NEPD 16:44
DX: M79.605 Pain in left leg (principal); R60.0 Localized edema; M06.9 Rheumatoid arthritis, unspecified; J44.9 Chronic obstructive pulmonary disease, unspecified; I11.0 Hypertensive heart disease with heart failure; I50.9 Heart failure, unspecified; M10.9 Gout, unspecified; K74.60 Unspecified cirrhosis of liver; F17.200 Nicotine dependence, unspecified, uncomplicated
CPT/HCPCS: 71010; 80053; 82550; 82552; 83880; 84484; 85025; 85610; 85730; 93005; 93970; 96374; 99285; J2270

== ENCOUNTER 2017-09-28 11:15 | Emergency (ER) | payer SELFPAY ==
[2017-09-28 11:18] VITALS: BP 143/93; PULSE 78; RESP 14; TEMP 97.8; O2SAT 95
[2017-09-28] MEDS ORDERED: KETOROLAC TROMETHAMINE 60 MG/2 ML (IM) VIAL IM ONE (11:45)
--- NOTE | 2017-09-28 11:47 | PD ---
HPI Chief Complaint: Musculoskeletal Complaint Time Seen by Provider: 11:36 Travel History International Travel<30 days: No Contact w/Intl Traveler<30days: No Traveled to known affect area: No History of Present Illness HPI Patient comes in complaining of RA flare in his left hand that began 3 days ago. Patient started taking [id number] medication with little no improvement of symptoms. Patient reports touching it or moving his hand makes the pain worse. Patient describes pain as a pressure throbbing pain without radiation. Patient reports a similar to his previous RA flares. Patient reports Toradol injection seems to help him the most. Denies any trauma. Patient states it does itch from time to time causing him to scratching causing his concern about possibly getting infected. Patient reports he has not been on any medication for his RA approximately 8 months secondary to losing his insurance. PFSH Past Medical History Hx Anticoagulant Therapy: No Arthritis: Yes (OA, RA) Asthma: No Autoimmune Disease: No Blood Disorders: No Anxiety: Yes Depression: Yes Heart Rhythm Problems: No Cancer: No Cardiac Catheterization: Yes (stent) Cardiovascular Problems: Yes High Cholesterol: Yes Chemotherapy: No Chest Pain: Yes Congestive Heart Failure: Yes Cirrhosis: Yes COPD: Yes (EMPHYSEMA) Cerebrovascular Accident: Yes Diabetes: No Diminished Hearing: No Endocrine: No Gastrointestinal Disorders: Yes GERD: Yes Glaucoma: No Gout: Yes Genitourinary: Yes Hepatitis: No Hiatal Hernia: No Heparin Induced Thrombocytopen: No Hypertension: Yes Immune Disorder: Yes (RA) Implanted Vascular Access Dvce: No Kidney Stones: Yes Musculoskeletal: Yes (GOUT) Neurologic: Yes (NEUROPATHY) Psychiatric: Yes Reproductive: No Respiratory: Yes Immunizations Current: Yes Migraines: No Myocardial Infarction: Yes Renal Failure: No Schizophrenia: Yes Seizures: Yes Sickle Cell Disease: No Sleep Apnea: No Thyroid Disease: No Ulcer: No Past Surgical History Abdominal Surgery: No AICD: No Arteriovenous Shunt: No Cardiac Surgery: No Coronary Artery Bypass Graft: No Ear Surgery: No Endocrine Surgery: No Eye Surgery: No Genitourinary Surgery: Yes (kidney stent ) Gynecologic Surgery: No Insulin Pump: No Joint Replacement: No Neurologic Surgery: No Oral Surgery: No Pacemaker: No Thoracic Surgery: No Other Surgery: Yes Social History Alcohol Use: Yes (OCC) Tobacco Use: No (Reformed) Substance Use: No Allergies-Medications (Allergen,Severity, Reaction): Coded Allergies: No Known Allergies (Verified Adverse Reaction, Unknown, 08/29/17) Reported Meds & Prescriptions Reported Meds & Active Scripts Active Keflex (Cephalexin) 500 Mg Cap 500 Mg PO Q12H 7 Days Meloxicam 7.5 Mg Tab 7.5 Mg PO DAILY 5 Days Naproxen 500 Mg Tab 500 Mg PO BID 5 Days Prednisone 20 Mg Tab 40 Mg PO DAILY 5 Days Take 40 mg (2 tablets) daily for 5 days Cipro (Ciprofloxacin HCl) 500 Mg Tab 500 Mg PO BID 7 Days Lortab (Hydrocodone-Acetaminophen) 5-325 Mg Tab 1 Tab PO Q6H PRN Medrol Dosepak (Methylprednisolone) 4 Mg Dspk 4 Mg PO DIRECTED Per Pharmacist direction Review of Systems Except as stated in HPI: all other systems reviewed are Neg Physical Exam Narrative GENERAL: Well-developed, overly nourished, in no acute distress, and non-ill appearing. SKIN: Focused skin assessment warm and dry. HEAD: Atraumatic. Normocephalic. EYES: Pupils equal and round. EOMI. No scleral icterus. No injection or drainage. ENT: No nasal bleeding or discharge. Mucous membranes pink and moist. NECK: Trachea midline. Supple. No nuclear rigidity. RESPIRATORY: No accessory muscle use. No respiratory distress. MUSCULOSKELETAL: No obvious deformities. No clubbing. No cyanosis. No edema. Decreased range of motion left hand secondary to pain swelling. Neurovascularly intact distally. Soft tissue swelling of the left hand. There is no crepitus, erythematous, or drainage. It is afebrile. NEUROLOGICAL: Awake and alert. No obvious cranial nerve deficits. Motor grossly within normal limits. Normal speech. PSYCHIATRIC: Appropriate mood and affect; insight and judgment normal. Data Data Last Documented VS Vital Signs Date Time Temp Pulse Resp B/P (MAP) Pulse Ox O2 Delivery O2 Flow Rate FiO2 09/28/17 13:32 09/28/17 11:18 97.8 78 14 95 Orders Orders Ketorolac Inj (Toradol Inj) (09/28/17 11:45) Ed Discharge Order (09/28/17 13:32) MDM Medical Decision Making Medical Screen Exam Complete: Yes Emergency Medical Condition: Yes Differential Diagnosis RA flare, gout, cellulitis, tendinitis Narrative Course There is no evidence to suggest infectious, septic joint at this time, but will place patient on antibiotics prophylactically secondary to him scratching. There was no significant erythema, heat, swelling or fluctuance. The patient has had no distal or local trauma, cuts or abrasions. The patient has had similar episodes and has a history of RA. There is no trauma to suspect contusion, strain or fracture. There is no clinical evidence to suggest bursitis , tendonitis, osteoarthritis, Rheumatoid arthritis, or septic arthritis. The patient was placed on NSAID medication and the patient was instructed on ice packs as well. The patient agreed with plan. Patient in no obvious distress upon re-evaluation. Patient was asked if they wanted to speak to my attending, which the patient did not wish to do at this time. Any questions/concerns in reference to patient diagnosis/condition discussed and clarified prior to patient's discharge. Reinforced sheer importance of close follow up with patient's primary physician or primary care clinic. Instructed patient to return to ED immediately, if symptoms return/ worsen. Patient showed understanding of above instructions. Further instructions and recommendations were detailed in discharge paperwork. Patient ambulated without difficulty out of ED at discharge. Diagnosis Primary Impression: Rheumatoid arthritis flare Referrals: [facility] Patient Instructions: General Instructions Additional Instructions: Follow-up with your primary care physician this week for re-evaluation. Take all medication as prescribed. Return to the emergency department if symptoms get worse. Med/Other Pt SpecificInfo: Prescription(s) given Scripts Cephalexin (Keflex) 500 Mg Cap 500 MG PO Q12H for Infection for 7 Days, #14 CAP 0 Refills Prov: Dona Hussein MD 09/28/17 Meloxicam (Meloxicam) 7.5 Mg Tab 7.5 MG PO DAILY for Arthritis Pain for 5 Days, #5 TAB 0 Refills Prov: Dona Hussein MD 09/28/17 Disposition: 01 DISCHARGE HOME Condition: Stable Colin Domingo Sep 28, 2017 11:47
[2017-09-28] MEDS ORDERED: CEPH-460 PO (13:32)
[2017-09-28] MEDS ORDERED: MELO7.5T27 PO (13:32)
== END 2017-09-28 13:33 | disposition home or self-care (01) ==
LOC: NEPK 11:15
DX: M06.9 Rheumatoid arthritis, unspecified (principal)
CPT/HCPCS: 96372; 99284; J1885

== ENCOUNTER 2017-09-29 08:29 | Emergency (ER) | payer SELFPAY ==
[~2017-09-29 08:29] MED LIST changes: +CEPH-460 PO; +MELO7.5T27 PO
[2017-09-29 08:34] VITALS: BP 144/94; PULSE 88; RESP 13; TEMP 98.7; O2SAT 97
--- NOTE | 2017-09-29 09:10 | PD ---
HPI Chief Complaint: Edema Time Seen by Provider: 09:00 Travel History International Travel<30 days: No Contact w/Intl Traveler<30days: No Traveled to known affect area: No History of Present Illness HPI Patient comes back to the emergency department complaining of continued RA flare. Patient seen here yesterday for the same. Patient received a shot yesterday that reports helped him for about 8 hours before the swelling and pain came back. Patient left without his prescriptions yesterday but did pick them up this morning however is requesting additional shot to help with the pain and inflammation. Patient reports pain more in the first in second metacarpophalangeal joints as worse with palpation and certain movement. Denies any injury, fevers, weight loss, chest pain, shortness of breath, or radiation of pain. Patient reported pain similar to previous RA flares, but has been out of his medication secondary to losing his insurance. PFSH Past Medical History Hx Anticoagulant Therapy: No Arthritis: Yes (OA, RA) Asthma: No Autoimmune Disease: No Blood Disorders: No Anxiety: Yes Depression: Yes Heart Rhythm Problems: No Cancer: No Cardiac Catheterization: Yes (stent) Cardiovascular Problems: Yes High Cholesterol: Yes Chemotherapy: No Chest Pain: Yes Congestive Heart Failure: Yes Cirrhosis: Yes COPD: Yes (EMPHYSEMA) Cerebrovascular Accident: Yes Diabetes: No Diminished Hearing: No Endocrine: No Gastrointestinal Disorders: Yes GERD: Yes Glaucoma: No Gout: Yes Genitourinary: Yes Hepatitis: No Hiatal Hernia: No Heparin Induced Thrombocytopen: No Hypertension: Yes Immune Disorder: Yes (RA) Implanted Vascular Access Dvce: No Kidney Stones: Yes Musculoskeletal: Yes (GOUT) Neurologic: Yes (NEUROPATHY) Psychiatric: Yes Reproductive: No Respiratory: Yes Immunizations Current: Yes Migraines: No Myocardial Infarction: Yes Renal Failure: No Schizophrenia: Yes Seizures: Yes Sickle Cell Disease: No Sleep Apnea: No Thyroid Disease: No Ulcer: No Past Surgical History Abdominal Surgery: No AICD: No Arteriovenous Shunt: No Cardiac Surgery: No Coronary Artery Bypass Graft: No Ear Surgery: No Endocrine Surgery: No Eye Surgery: No Genitourinary Surgery: Yes (kidney stent ) Gynecologic Surgery: No Insulin Pump: No Joint Replacement: No Neurologic Surgery: No Oral Surgery: No Pacemaker: No Thoracic Surgery: No Other Surgery: Yes Social History Alcohol Use: Yes (OCC) Tobacco Use: No (Reformed) Substance Use: No Allergies-Medications (Allergen,Severity, Reaction): Coded Allergies: No Known Allergies (Verified Adverse Reaction, Unknown, 09/29/17) Reported Meds & Prescriptions Reported Meds & Active Scripts Active Keflex (Cephalexin) 500 Mg Cap 500 Mg PO Q12H 7 Days Meloxicam 7.5 Mg Tab 7.5 Mg PO DAILY 5 Days Review of Systems Except as stated in HPI: all other systems reviewed are Neg Physical Exam Narrative GENERAL: Well-developed, overly nourished, in no acute distress, and non-ill appearing. SKIN: Focused skin assessment warm and dry. HEAD: Atraumatic. Normocephalic. EYES: Pupils equal and round. EOMI. No scleral icterus. No injection or drainage. ENT: No nasal bleeding or discharge. Mucous membranes pink and moist. NECK: Trachea midline. Supple. No nuclear rigidity. CARDIOVASCULAR: Radial pulses 2+, intact, and equal bilaterally. Capillary refill less than 2 seconds. RESPIRATORY: No accessory muscle use. No respiratory distress. MUSCULOSKELETAL: No obvious deformities. No clubbing. No cyanosis. No edema. Full range of motion. Minimal soft tissue swelling left hand. Patient reports tenderness to palpation over the first second metacarpal phalangeal joints. No crepitus. NEUROLOGICAL: Awake and alert. No obvious cranial nerve deficits. Motor grossly within normal limits. Normal speech. PSYCHIATRIC: Appropriate mood and affect; insight and judgment normal. Data Data Last Documented VS Vital Signs Date Time Temp Pulse Resp B/P (MAP) Pulse Ox O2 Delivery O2 Flow Rate FiO2 09/29/17 08:34 98.7 88 13 144/94 (111) 97 Orders Orders Ed Discharge Order (09/29/17 09:05) Dexamethasone Inj (Decadron Inj) (09/29/17 09:15) MDM Medical Decision Making Medical Screen Exam Complete: Yes Emergency Medical Condition: No Differential Diagnosis Osteoarthritis, rheumatoid arthritis, septic arthritis, medical noncompliance, gout, pseudogout Narrative Course There is no evidence to suggest infectious, septic joint at this time. There was no significant erythema, heat, swelling or fluctuance. The patient has had no distal or local trauma, cuts or abrasions. The patient has had similar episodes and has a history of RA. There is no trauma to suspect contusion, strain or fracture. There is no clinical evidence to suggest bursitis, tendonitis, osteoarthritis, gout, pseudogout, or septic arthritis. The patient was not given his prescriptions from yesterday and the patient was instructed on ice packs as well. The patient agreed with plan. Patient in no obvious distress upon re-evaluation. Any questions/concerns in reference to patient diagnosis/condition discussed and clarified prior to patient's discharge. Reinforced sheer importance of close follow up with patient 's primary physician or primary care clinic. Instructed patient to return to ED immediately, if symptoms return/worsen. Patient showed understanding of above instructions. Further instructions and recommendations were detailed in discharge paperwork. Patient ambulated without difficulty out of ED at discharge. Diagnosis Primary Impression: Rheumatoid arthritis flare Referrals: [facility] Patient Instructions: General Instructions, Rheumatoid Arthritis (DC) Additional Instructions: Follow-up with your primary care physician in 5-7 days for reevaluation. Take all medication as prescribed. Return to the emergency department if symptoms get worse. Med/Other Pt SpecificInfo: Prescription(s) given Disposition: 01 DISCHARGE HOME Condition: Stable Colin Domingo Sep 29, 2017 09:10
[2017-09-29] MEDS ORDERED: DEXAMETHASONE SOD PHOS 20 MG/5 ML VIAL IM ONE (09:15)
== END 2017-09-29 09:39 | disposition home or self-care (01) ==
LOC: NEPK 08:29
DX: M06.9 Rheumatoid arthritis, unspecified (principal); F32.9 Major depressive disorder, single episode, unspecified; F41.9 Anxiety disorder, unspecified; I11.0 Hypertensive heart disease with heart failure; I50.9 Heart failure, unspecified; E78.00 Pure hypercholesterolemia, unspecified; J44.9 Chronic obstructive pulmonary disease, unspecified; K74.60 Unspecified cirrhosis of liver; Z86.73 Personal history of transient ischemic attack (TIA), and cerebral infarction without residual deficits
CPT/HCPCS: 96372; 99284; J1100

== ENCOUNTER 2017-12-18 16:53 | Emergency (ER) | payer BC ==
[~2017-12-18 16:53] MED LIST changes: -CIPR-9 PO; -HYDR-3533 PO; -MEDR4PAK PO; -NAPR500T2 PO; -PRED20 PO
[2017-12-18 16:57] VITALS: BP 168/83; PULSE 80; RESP 18; TEMP 98.5; O2SAT 97
[2017-12-18] MEDS ORDERED: KETOROLAC TROMETHAMINE 60 MG/2 ML (IM) VIAL IM ONE (21:00)
[2017-12-18] MEDS ORDERED: ACETAMINOPHEN/HYDROcodone 325 MG/5 MG TAB PO ONE (21:00)
[2017-12-18] MEDS ORDERED: predniSONE 50 MG TAB PO ONE (21:00)
[2017-12-18] MEDS ORDERED: NAPR500 PO (21:02)
[2017-12-18] MEDS ORDERED: PRED50 PO (21:02)
--- NOTE | 2017-12-18 21:02 | PD ---
HPI Chief Complaint: Edema Time Seen by Provider: 20:52 Travel History International Travel<30 days: No Contact w/Intl Traveler<30days: No Traveled to known affect area: No History of Present Illness HPI 57-year-old male with history of rheumatoid arthritis here for evaluation of rheumatoid flare. He is complaining of pain mainly in his right hand. He also has a cyst on the dorsum of his right hand over the fifth MCP joint that he states showed up about a week and a half ago. Patient developed pain in his right hand was initially 6 out of 10 currently 8 out of 10, worse with movements. No fevers. No trauma. PFSH Past Medical History Hx Anticoagulant Therapy: No Arthritis: Yes Asthma: No Autoimmune Disease: Yes (RA) Blood Disorders: No Anxiety: Yes Depression: Yes Heart Rhythm Problems: No Cancer: No Cardiac Catheterization: Yes (stent) Cardiovascular Problems: Yes High Cholesterol: Yes Chemotherapy: No Chest Pain: Yes Congestive Heart Failure: Yes Cirrhosis: Yes COPD: Yes (EMPHYSEMA) Cerebrovascular Accident: Yes Diabetes: No Diminished Hearing: No Endocrine: No Gastrointestinal Disorders: Yes GERD: Yes Glaucoma: No Gout: Yes Genitourinary: Yes Hepatitis: No Hiatal Hernia: No Heparin Induced Thrombocytopen: No Hypertension: Yes Immune Disorder: Yes (RA) Implanted Vascular Access Dvce: No Kidney Stones: Yes Musculoskeletal: Yes (GOUT) Neurologic: Yes (NEUROPATHY) Psychiatric: Yes Reproductive: No Respiratory: Yes Immunizations Current: Yes Migraines: No Myocardial Infarction: Yes Renal Failure: No Schizophrenia: Yes Seizures: Yes Sickle Cell Disease: No Sleep Apnea: No Thyroid Disease: No Ulcer: No Past Surgical History Abdominal Surgery: No AICD: No Arteriovenous Shunt: No Cardiac Surgery: No Coronary Artery Bypass Graft: No Ear Surgery: No Endocrine Surgery: No Eye Surgery: No Genitourinary Surgery: Yes (kidney stent ) Gynecologic Surgery: No Insulin Pump: No Joint Replacement: No Neurologic Surgery: No Oral Surgery: No Pacemaker: No Thoracic Surgery: No Other Surgery: Yes Social History Alcohol Use: Yes (OCC) Tobacco Use: No Substance Use: No Allergies-Medications (Allergen,Severity, Reaction): Coded Allergies: No Known Allergies (Verified Adverse Reaction, Unknown, 12/18/17) Reported Meds & Prescriptions Reported Meds & Active Scripts Active No Active Prescriptions or Reported Medications Review of Systems Except as stated in HPI: all other systems reviewed are Neg Physical Exam Narrative GENERAL: Well-developed, well-nourished, comfortable, no apparent distress. SKIN: Focused skin assessment warm/dry. HEAD: Atraumatic. Normocephalic. EYES: Pupils equal and round. No scleral icterus. No injection or drainage. ENT: No nasal bleeding or discharge. Mucous membranes pink and moist. NECK: Trachea midline. No JVD. CARDIOVASCULAR: Regular rate and rhythm. Bilateral distal radial pulses are brisk and equal. Normal capillary refill in right hand. RESPIRATORY: No accessory muscle use. MUSCULOSKELETAL: Bilateral hands with fingers with ulnar deviation consistent with rheumatoid arthritis. On the right hand on the dorsal aspect over the fifth MCP joint there is a small approximately 1 cm cyst consistent with a ganglion cyst. There is no overlying warmth erythema. NEUROLOGICAL: Awake and alert. No obvious cranial nerve deficits. Motor grossly within normal limits. Normal speech. PSYCHIATRIC: Appropriate mood and affect; insight and judgment normal. Data Data Last Documented VS Vital Signs Date Time Temp Pulse Resp B/P (MAP) Pulse Ox O2 Delivery O2 Flow Rate FiO2 12/18/17 16:57 98.5 80 18 168/83 (111) 97 Orders Orders Ketorolac Inj (Toradol Inj) (12/18/17 21:00) Acetamin-Hydrocod 325-5 Mg ([place] 5-325 (12/18/17 21:00) Prednisone (Deltasone) (12/18/17 21:00) MDM Medical Decision Making Medical Screen Exam Complete: Yes Emergency Medical Condition: Yes Differential Diagnosis Rheumatoid arthritis flare, ganglion cyst, septic arthritis unlikely Narrative Course Vital signs reviewed. Patient is afebrile. Patient has signs and symptoms consistent with rheumatoid arthritis flare. He also has a ganglion cyst on his right hand. He really wants me to cut the cyst open. I told him I would not do that here in the emergency department and will refer him to a hand surgeon. I will give him Toradol and a Lortab here as well as prednisone and discharge him home with a prescription for naproxen and prednisone. Given the name of the hand surgeon tree surgeon with him to follow-up with this week. He was advised on when to return to the emergency department. He verbalizes understanding and agreement with plan. Diagnosis Primary Impression: Rheumatoid arthritis flare Additional Impression: Ganglion cyst Referrals: Enoch Hopkins III, MD 3 days Hand Surgeon Primary Care Physician 3 days Additional Instructions: Follow-up with a primary care physician this week. Follow-up with hand surgeon Dr. Hopkins or hand surgeon of your choice this week. Return to the emergency department for worsening symptoms or any other concerns. Scripts Naproxen (Naprosyn) 500 Mg Tab 500 MG PO BID for 14 Days, #28 TAB 0 Refills Prov: Talib John MD 12/18/17 Prednisone (Prednisone) 50 Mg Tab 50 MG PO DAILY for 5 Days, #5 TAB 0 Refills Prov: Talib John MD 12/18/17 Disposition: 01 DISCHARGE HOME Condition: Stable Talib John MD Dec 18, 2017 21:02
== END 2017-12-18 21:32 | disposition home or self-care (01) ==
LOC: NEPD 16:53
DX: M06.9 Rheumatoid arthritis, unspecified (principal); M67.441 Ganglion, right hand; E78.00 Pure hypercholesterolemia, unspecified; I11.0 Hypertensive heart disease with heart failure; I50.9 Heart failure, unspecified; I25.2 Old myocardial infarction; F32.9 Major depressive disorder, single episode, unspecified; M19.90 Unspecified osteoarthritis, unspecified site; F41.9 Anxiety disorder, unspecified; J44.9 Chronic obstructive pulmonary disease, unspecified; F20.9 Schizophrenia, unspecified; Z86.73 Personal history of transient ischemic attack (TIA), and cerebral infarction without residual deficits; Z95.5 Presence of coronary angioplasty implant and graft
CPT/HCPCS: 96372; 99283; J1885; J7512

== ENCOUNTER 2018-06-26 13:31 | Observation (INO) ==
[2018-06-26] MEDS ORDERED: Sodium Chlor 0.9% Inj 500 ML IV.SIG ONE (13:47)
--- NOTE | 2018-06-26 14:03 | ED ---
HPI General Chief Complaint: Chest Pain Stated Complaint: Chest Pain Time Seen by Provider: 06/26/18 13:33 Source: patient and EMS Mode of arrival: EMS Limitations: no limitations History of Present Illness HPI narrative: Patient is a 57-year-old male presenting to emerge department for evaluation of chest pain. She states he has been walking a lot from friends house at a friend's house lately and has developed this pain yesterday. Patient reports that he done some water over his head earlier which helped the pain. He felt like he became overheated. Patient reports a history of hypertension but he has been noncompliant with his medications because he lost insurance. He states that he smokes 1 pack of cigarettes a day. He denies any alcohol use. Patient had a history of a traumatic brain injury several years ago. He also has a history of schizoaffective disorder. He states that he took risperidone which was his friend's medication before he came here because he is out of his Abilify. Patient does not have any other complaints at this time. He rates his pain a 5 out of 10, aching, this does not radiate. MD complaint: Reports chest pain STEMI Alert: No Onset (ago): day(s) (2) Duration: constant Onset: during rest and during exertion Pain location: Reports left chest Severity: mild Quality: Reports aching Pain radiation: Reports none Relieving factors: nothing Exacerbating factors: nothing Treatments prior to arrival chest pain: Reports aspirin Related Data Home Medications Medication Instructions Recorded Confirmed No Known Home Medications 06/26/18 06/26/18 Allergies Allergy/AdvReac Type Severity Reaction Status Date / Time No Known Allergies Allergy Verified 05/09/18 05:34 Review of Systems ROS: all other systems reviewed are negative [facility] Medical History Medical History Altered mental status, unspecified (Acute) Arthritis (Acute) Gout (Acute) HTN (hypertension) (Acute) Hernia of abdominal cavity (Acute) Hypercholesteremia (Acute) Kidney stones (Acute) Myocardial infarct (Acute) Neuropathy (Acute) Osteoarthritis (Acute) Schizo-affective schizophrenia (Acute) Surgical History Surgical History H/O heart artery stent (Acute) History of renal stent (Acute) Hx of cardiac cath (Acute) Social History Social History Substance History: No History of Abuse Second Hand Smoke Exposure: Yes Smoking Status: Current every day smoker Tobacco Type: Cigarettes How Often Do You Have a Drink Containing Alcohol: Monthly or less Recent Travel in [facility] within the Last 8 Weeks: No Recent Out of Country Travel within the Last 8 Weeks: No Immunization History Tetanus Immunization: >5 Years Exam Narrative Exam Narrative: GENERAL: Well-developed, well-nourished, alert male. Presenting in no acute distress. SKIN: Focused skin assessment warm/dry. HEAD: Atraumatic. Normocephalic. EYES: Pupils equal and round. No scleral icterus. No injection or drainage. ENT: No nasal bleeding or discharge. Mucous membranes pink and moist. NECK: Trachea midline. No JVD. CARDIOVASCULAR: Regular rate and rhythm. No murmur appreciated. RESPIRATORY: No accessory muscle use. Clear to auscultation. Breath sounds equal bilaterally. GASTROINTESTINAL: Abdomen soft, non-tender, nondistended. Hepatic and splenic margins not palpable. MUSCULOSKELETAL: No obvious deformities. No clubbing. No cyanosis. No edema. NEUROLOGICAL: Awake and alert. No obvious cranial nerve deficits. Motor grossly within normal limits. Normal speech. PSYCHIATRIC: Appropriate mood and affect; insight and judgment normal. Course Initial Documented Vital Signs Temperature 98.4 F 06/26/18 13:42 Pulse Rate 100 H 06/26/18 13:42 Respiratory Rate 21 06/26/18 13:42 Blood Pressure 145/97 H 06/26/18 13:42 Pulse Oximetry 99 06/26/18 13:42 Last Documented Vital Signs Temperature 98.4 F 06/26/18 13:42 Pulse Rate 87 06/26/18 16:05 Respiratory Rate 17 06/26/18 16:05 Blood Pressure 152/87 H 06/26/18 16:05 Pulse Oximetry 99 06/26/18 16:05 Clinical Decision Support HEART Score Questions History: Moderately suspicious EKG: Non-specific repolarization disturbance Age: 45-64 years Risk Factors: 1-2 Risk Factors Initial Troponin: Normal Limit Heart Score HEART Score: 4 Medical Decision Making AZALEA Attestation AZALEA supervised visit: Yes Attestation: I, Dr. Hussein, have reviewed the advance practice practitioner's documentation and am in agreement, met with the patient face to face, made the diagnosis, and the medical decision making was done by me. *My assessment and Findings: Patient presents to us via [facility] with a chief complaint of chest pain. He reports that he has been doing a lot of walking. He has had a previous TBI which makes history and physical a bit difficult. His chest pain is in the left lateral chest. Please see Lorene Nassar NP's note for a more detailed H&P, final diagnosis and disposition MDM Narrative Medical decision making narrative: Patient presented for evaluation of chest pain. Patient is well-appearing, his vital signs are stable. Labs and imaging ordered and pending. Urinalysis is consistent with a urinary tract infection, patient was given 1 g of Rocephin IV. Initial CK was elevated, patient was given 2 L of IV fluid, CK level was reassessed and had trended down. Initial set of cardiac enzymes are negative, chest x-ray shows no acute disease. Discussed plan of care with my attending physician. Patient will be admitted for further chest pain workup, his last catheterization was over 5 years ago. Heart score is 4. Medical Screen Exam Complete: Yes Emergency Medical Condition: Yes Differential Diagnosis Differential Diagnosis: ACS versus USA versus metabolic abnormality versus arrhythmia versus mood disorder versus rhabdomyolysis Medical Records Medical records reviewed: Yes I reviewed the patient's medical records. Lab Data Lab results reviewed: Yes I reviewed the patient's lab results. Result diagrams: 06/26/18 13:55 06/26/18 13:55 Lab Results 06/26/18 06/26/18 06/26/18 Range/Units 13:55 13:55 13:55 WBC 11.6 H (4.0-11.0) th/mm3 RBC 4.30 L (4.50-5.90) mil/mm3 Hgb 12.0 L (13.0-17.0) gm/dL Hct 35.3 L (39.0-51.0) % MCV 82.0 (80.0-100.0) fL MCH 27.9 (27.0-34.0) pg MCHC 34.0 (32.0-36.0) % RDW 16.5 (11.6-17.2) % Plt Count 254 (150-450) th/mm3 MPV 8.5 (7.0-11.0) fL Neut % (Auto) 75.9 H (16.0-70.0) % Lymph % (Auto) 15.4 (9.0-44.0) % Graham % (Auto) 6.5 (0.0-8.0) % Eos % (Auto) 1.5 (0.0-4.0) % Baso % (Auto) 0.7 (0.0-2.0) % Neut # (Auto) 8.8 H (1.8-7.7) th/mm3 Lymph # (Auto) 1.8 (1.0-4.8) th/mm3 Graham # (Auto) 0.8 (0.0-0.9) th/mm3 Eos # (Auto) 0.2 (0.0-0.4) th/mm3 Baso # (Auto) 0.1 (0.0-0.2) th/mm3 WBC Differential . Differential Comment Auto diff final PT (9.8-11.6) sec INR Ratio APTT (24.3-30.1) sec Sodium 142 (136-145) meq/L Potassium 3.6 (3.5-5.1) meq/L Chloride 111 H (98-107) meq/L Carbon Dioxide 22.4 (21.0-32.0) meq/L Anion Gap 9 (5-15) meq/L BUN 26 H (7-18) mg/dL Creatinine 1.56 H (0.60-1.30) mg/dL Estimated GFR 46 L (>89) mL/min Random Glucose 86 (74-106) mg/dL Calcium 8.1 L (8.5-10.1) mg/dL Magnesium 1.8 (1.5-2.5) mg/dL Total Bilirubin 0.3 (0.2-1.0) mg/dL AST 41 H (15-37) U/L ALT 52 (12-78) U/L Alkaline Phosphatase 77 (45-117) U/L Total Creatine Kinase 727 H Cancelled (39-308) U/L CK-MB (CK-2) 12.9 H (0.5-3.6) ng/mL CK-MB (CK-2) % 1.8 (0.0-4.0) % Troponin I 0.02 (0.02-0.05) ng/mL Total Protein 6.5 (6.4-8.2) g/dL Albumin 2.9 L (3.4-5.0) g/dL Lipase 220 (73-393) U/L Urine Color (Yellw/Straw) Urine Clarity (Clear) Urine pH (5.0-8.5) Ur Specific [place] (1.002-1.035) Urine Protein (Neg-Trace) mg/dL Urine Glucose (UA) (Negative) mg/dL Urine Ketones (Negative) mg/dL Urine Occult Blood (Negative) Urine Nitrate (Negative) Urine Bilirubin (Negative) Urine Urobilinogen (Less than 2) mg/dL Ur Leukocyte Esterase (Negative) Urine RBC (0-3) /hpf Urine WBC (0-5) /hpf Urine Bacteria (None) /hpf Hyaline Casts (0-3) /lpf Urine Mucus (Occasional) /lpf Micro UA Comment Ur Microscopic Review Urine Culture Comments Serum Alcohol Less than 3 (0-5) mg/dL 06/26/18 06/26/18 06/26/18 Range/Units 14:14 16:52 16:52 WBC (4.0-11.0) th/mm3 RBC (4.50-5.90) mil/mm3 Hgb (13.0-17.0) gm/dL Hct (39.0-51.0) % MCV (80.0-100.0) fL MCH (27.0-34.0) pg MCHC (32.0-36.0) % RDW (11.6-17.2) % Plt Count (150-450) th/mm3 MPV (7.0-11.0) fL Neut % (Auto) (16.0-70.0) % Lymph % (Auto) (9.0-44.0) % [place] % (Auto) (0.0-8.0) % Eos % (Auto) (0.0-4.0) % Baso % (Auto) (0.0-2.0) % Neut # (Auto) (1.8-7.7) th/mm3 Lymph # (Auto) (1.0-4.8) th/mm3 [place] # (Auto) (0.0-0.9) th/mm3 Eos # (Auto) (0.0-0.4) th/mm3 Baso # (Auto) (0.0-0.2) th/mm3 WBC Differential Differential Comment PT (9.8-11.6) sec INR Ratio APTT (24.3-30.1) sec Sodium (136-145) meq/L Potassium (3.5-5.1) meq/L Chloride (98-107) meq/L Carbon Dioxide (21.0-32.0) meq/L Anion Gap (5-15) meq/L BUN (7-18) mg/dL Creatinine (0.60-1.30) mg/dL Estimated GFR (>89) mL/min Random Glucose (74-106) mg/dL Calcium (8.5-10.1) mg/dL Magnesium (1.5-2.5) mg/dL Total Bilirubin (0.2-1.0) mg/dL AST (15-37) U/L ALT (12-78) U/L Alkaline Phosphatase (45-117) U/L Total Creatine Kinase 596 H Cancelled (39-308) U/L CK-MB (CK-2) 11.0 H (0.5-3.6) ng/mL CK-MB (CK-2) % 1.8 (0.0-4.0) % Troponin I Cancelled (0.02-0.05) ng/mL Total Protein (6.4-8.2) g/dL Albumin (3.4-5.0) g/dL Lipase (73-393) U/L Urine Color Yellow (Yellw/Straw) Urine Clarity Hazy H (Clear) Urine pH 5.0 (5.0-8.5) Ur Specific [place] 1.012 (1.002-1.035) Urine Protein 30 H (Neg-Trace) mg/dL Urine Glucose (UA) Negative (Negative) mg/dL Urine Ketones Negative (Negative) mg/dL Urine Occult Blood Moderate H (Negative) Urine Nitrate Negative (Negative) Urine Bilirubin Negative (Negative) Urine Urobilinogen Less than 2 (Less than 2) mg/dL Ur Leukocyte Esterase Small H (Negative) Urine RBC 9 H (0-3) /hpf Urine WBC 22 H (0-5) /hpf Urine Bacteria Few H (None) /hpf Hyaline Casts 1 (0-3) /lpf Urine Mucus Few H (Occasional) /lpf Micro UA Comment Culture indicated Ur Microscopic Review Not Reportable Urine Culture Comments Culture indicated Serum Alcohol (0-5) mg/dL 06/26/18 Range/Units 17:10 WBC (4.0-11.0) th/mm3 RBC (4.50-5.90) mil/mm3 Hgb (13.0-17.0) gm/dL Hct (39.0-51.0) % MCV (80.0-100.0) fL MCH (27.0-34.0) pg MCHC (32.0-36.0) % RDW (11.6-17.2) % Plt Count (150-450) th/mm3 MPV (7.0-11.0) fL Neut % (Auto) (16.0-70.0) % Lymph % (Auto) (9.0-44.0) % Graham % (Auto) (0.0-8.0) % Eos % (Auto) (0.0-4.0) % Baso % (Auto) (0.0-2.0) % Neut # (Auto) (1.8-7.7) th/mm3 Lymph # (Auto) (1.0-4.8) th/mm3 [place] # (Auto) (0.0-0.9) th/mm3 Eos # (Auto) (0.0-0.4) th/mm3 Baso # (Auto) (0.0-0.2) th/mm3 WBC Differential Differential Comment PT 10.2 (9.8-11.6) sec INR 1.0 Ratio APTT 24.9 (24.3-30.1) sec Sodium (136-145) meq/L Potassium (3.5-5.1) meq/L Chloride (98-107) meq/L Carbon Dioxide (21.0-32.0) meq/L Anion Gap (5-15) meq/L BUN (7-18) mg/dL Creatinine (0.60-1.30) mg/dL Estimated GFR (>89) mL/min Random Glucose (74-106) mg/dL Calcium (8.5-10.1) mg/dL Magnesium (1.5-2.5) mg/dL Total Bilirubin (0.2-1.0) mg/dL AST (15-37) U/L ALT (12-78) U/L Alkaline Phosphatase (45-117) U/L Total Creatine Kinase (39-308) U/L CK-MB (CK-2) (0.5-3.6) ng/mL CK-MB (CK-2) % (0.0-4.0) % Troponin I (0.02-0.05) ng/mL Total Protein (6.4-8.2) g/dL Albumin (3.4-5.0) g/dL Lipase (73-393) U/L Urine Color (Yellw/Straw) Urine Clarity (Clear) Urine pH (5.0-8.5) Ur Specific [place] (1.002-1.035) Urine Protein (Neg-Trace) mg/dL Urine Glucose (UA) (Negative) mg/dL Urine Ketones (Negative) mg/dL Urine Occult Blood (Negative) Urine Nitrate (Negative) Urine Bilirubin (Negative) Urine Urobilinogen (Less than 2) mg/dL Ur Leukocyte Esterase (Negative) Urine RBC (0-3) /hpf Urine WBC (0-5) /hpf Urine Bacteria (None) /hpf Hyaline Casts (0-3) /lpf Urine Mucus (Occasional) /lpf Micro UA Comment Ur Microscopic Review Urine Culture Comments Serum Alcohol (0-5) mg/dL Imaging Data Radiologist's impression: Chest X-Ray 06/26/18 13:47 CONCLUSION: Negative examination. ECG Data EKG Prior to Arrival: No Attestation: I personally reviewed and interpreted this ECG as follows: (His EKG shows a sinus rhythm with a rate of 88. No acute STT wave changes.) Discharge Plan Discharge Disposition Patient Disposition: 30 Still Patient Discharge Condition Condition: Stable Discharge Details Diagnosis: Atypical chest pain, Acute UTI Physicians Team ED Provider: Dona Hussein ED Midlevel Provider: Lorene Miller Primary Care Provider: UNKNOWN, Attending Provider: Donte Quigley Status ED Status: Admitted Observation Patient
--- NOTE | 2018-06-26 14:11 | XR ---
EXAM DATE: 06/26/2018 1:47 PM EDT AGE/SEX: 57 years / Male INDICATIONS: Bilateral chest pain. CLINICAL DATA: This is the patient's initial encounter. Patient reports that signs and symptoms have been present for 1 day and indicates a pain score of 5/10. MEDICAL/SURGICAL HISTORY: . Hypercholesterolemia. Chronic obstructive pulmonary disease. Gastro esophageal reflux disease. Cerebrovascular accident. Seizures. Myocardial infarction. Congestive hear t failure. Hypertension. Emphysema. Kidney stones. Arthritis. Rheumatiod arthritis. . Kidney stent. COMPARISON: . FINDINGS: A single AP view of the chest demonstrates the lungs to be symmetrically aerated without evidence of mass, infiltrate or effusion. The cardiomediastinal contours are unremarkable. Osseous structures a re intact. CONCLUSION: Negative examination. Electronically signed by: Kris Silva MD 06/26/2018 2:09 PM EDT
[2018-06-26 14:27] LABS: Baso # (Auto) 0.1 th/mm3 (0.0-0.2); Baso % (Auto) 0.7 % (0.0-2.0); Eos # (Auto) 0.2 th/mm3 (0.0-0.4); Eos % (Auto) 1.5 % (0.0-4.0); Hematocrit 35.3 % (39.0-51.0); Lymph # (Auto) 1.8 th/mm3 (1.0-4.8); Lymph % (Auto) 15.4 % (9.0-44.0); Mean Corpuscular Hemoglobin 27.9 pg (27.0-34.0); Mean Platelet Volume 8.5 fL (7.0-11.0); Mono # (Auto) 0.8 th/mm3 (0.0-0.9); Mono % (Auto) 6.5 % (0.0-8.0); Neut # (Auto) 8.8 th/mm3 (1.8-7.7); Neut % (Auto) 75.9 % (16.0-70.0); Platelet Count 254 th/mm3 (150-450); Red Cell Distribution Width 16.5 % (11.6-17.2); White Blood Count 11.6 th/mm3 (4.0-11.0)
[2018-06-26 14:48] LABS: Alanine Aminotransferase 52 U/L (12-78); Albumin 2.9 g/dL (3.4-5.0); Anion Gap 9 meq/L (5-15); Aspartate Aminotransferase 41 U/L (15-37); Blood Urea Nitrogen 26 mg/dL (7-18); Calcium 8.1 mg/dL (8.5-10.1); Carbon Dioxide 22.4 meq/L (21.0-32.0); Chloride 111 meq/L (98-107); Glomerular Filtration Rate 46 mL/min (>89); Glucose,Random 86 mg/dL (74-106); Lipase 220 U/L (73-393); Magnesium 1.8 mg/dL (1.5-2.5); Potassium 3.6 meq/L (3.5-5.1); Sodium 142 meq/L (136-145)
[2018-06-26 14:50] LABS: Alkaline Phosphatase 77 U/L (45-117); Creatine Kinase 727 U/L (39-308); Total Protein 6.5 g/dL (6.4-8.2); Troponin I 0.02 ng/mL (0.02-0.05)
[2018-06-26 14:54] LABS: Bacteria,Urine Few /hpf; Bilirubin,Urine Negative (Negative); Clarity,Urine Hazy (Clear); Color,Urine Yellow (Yellw/Straw); Glucose,Urine (UA) Negative (Negative); Hyaline Casts,Urine 1 /lpf (0-3); Leukocyte Esterase,Urine Small (Negative); Mucus,Urine Few /lpf (Occasional); Nitrite,Urine Negative (Negative); Specific Gravity,Urine 1.012 (1.002-1.035)
[2018-06-26] MEDS ORDERED: Sod Chloride 0.9% Inj 1,000 ML IV.SIG SCH ×2 (15:00→16:00)
[2018-06-26 16:05] LABS: CKMB Percent 1.8 % (0.0-4.0); Creatine Kinase MB 12.9 ng/mL (0.5-3.6)
[2018-06-26 17:33] LABS: Activated Partial Thrombo Time 24.9 sec (24.3-30.1)
[2018-06-26] MEDS ORDERED: Acetaminophen 500 MG Tablet PO PRN (17:36)
[2018-06-26 17:43] LABS: Prothrombin Time 10.2 sec (9.8-11.6)
[2018-06-26 17:56] LABS: CKMB Percent 1.8 % (0.0-4.0)
[2018-06-26 18:19] LABS: Troponin I 0.03 ng/mL (0.02-0.05)
--- NOTE | 2018-06-26 19:28 | ECG ---
Date Performed: 06/26/2018 Time Performed: 13:41:44 PTAGE: 57 years EKG: Sinus rhythm POSSIBLE LEFT ATRIAL ENLARGEMENT NONSPECIFIC T-WAVE ABNORMALITY BORDERLINE ECG PREVIOUS TRACING : 08/29/2017 19.11 Since the previous tracing, no significant change noted DOCTOR: Marian Mendoza Interpretating Date/Time 06/26/2018 19:27:36
[2018-06-26] MEDS: Sod Chloride 0.9% Inj 1,000 ML IV.CONT SCH (19:46)
[2018-06-26 20:49] LABS: Troponin I 0.03 ng/mL (0.02-0.05)
[2018-06-26 21:01] LABS: CKMB Percent 1.7 % (0.0-4.0); Creatine Kinase MB 10.3 ng/mL (0.5-3.6)
[2018-06-27] MEDS: Sod Chloride 0.9% Inj 1,000 ML IV.CONT SCH (04:43)
[2018-06-27 07:58] VITALS: BP 162/93; RESP 16; TEMP 97.6
[2018-06-27 08:25] VITALS: O2SAT 99
--- NOTE | 2018-06-27 09:00 | P.HPCA ---
History of Present Illness Service: Chest pain center Primary Care Physician: UNKNOWN None followed at [facility] Chief Complaint: Heart skipping chest discomfort and cannot catch breath History of Present Illness: 57-year-old gentleman with a long history of multiple issues seen more than 20 times in the last 2 years in the emergency room and followed at [facility] for many years. The patient is not capable of providing meaningful history presenting tangential information in a disoriented manner. His brother attempts to help but actually exhibits the same problem. Supposedly he has a history of traumatic brain injury but I cannot find this document in both he and his brother refer to his problems as being psychiatric. He has documented schizophrenia but both also appear to demonstrate developmental issues. For the last several weeks they have been living in motels but the last 2 days ran out of money and have been on the street. Apparently Joey Reyna manages his money but apparently he is even having difficulty managing with them. The history he gives me is that over the last 3 or 4 days he has been having some heart skipping and pounding and that when that happens he gets a dull uncomfortable feeling in his left chest area which he describes as feeling like somebody's pushing him with a thumb. This is constant about 90% at the time. He describes the severity as being uncomfortable like somebody poking with her finger. The pain does radiate around his chest to different areas but no other place. He also complains of some shortness of breath. It seems to be worse when he is in the heat or trying to do things. When asked what relieves it he responds beautiful women. He also indicates that he hurts more or less all over and reports that he has osteoarthritis rheumatoid arthritis and gout. In addition all his muscles hurt. He has been previously evaluated for cardiac disease underwent a cath in 08 because of a false positive stress test which proved to be negative and then a Lexiscan in 2016 which also was negative. He denies using drugs or alcohol but does smoke a pack a day. He is reminded of the need to stop Review of Systems unobtainable due to mental condition PMFSH - History History Provided By: Patient - Medical History Medical History: Medical History (Last Reviewed 06/26/18 @ 17:43 by MONA Ayala) Altered mental status, unspecified Arthritis Gout HTN (hypertension) Hernia of abdominal cavity Hypercholesteremia Kidney stones Myocardial infarct Neuropathy Osteoarthritis Schizo-affective schizophrenia - Surgical History Surgical History: Surgical History (Last Reviewed 06/26/18 @ 17:43 by MONA Ayala) H/O heart artery stent History of renal stent Hx of cardiac cath - Tobacco History Second Hand Smoke Exposure: Yes Tobacco Use In Past 30 Days: Yes Smoking Status: Heavy tobacco smoker Tobacco Type: Cigarettes - Alcohol History How Often Do You Have a Drink Containing Alcohol: 2 to 4 times a month - Substance Use History Substance History: No History of Abuse - Travel History Recent Travel in the [place] Within the Last 8 Weeks: No Recent Travel Out of the Country Within the Last 8 Weeks: No - Immunization History Tetanus Immunization: >5 Years Medications and Allergies Active Medications: Active Medications Acetaminophen (Tylenol) 500 mg PO Q4H PRN PRN Reason: HEADACHE Last Admin: 06/26/18 19:45 Dose: 500 mg Cephalexin Monohydrate (Keflex) 500 mg PO BID MYRNA Last Admin: 06/26/18 20:00 Dose: 500 mg Sodium Chloride (Ns Inj) 1,000 mls @ 0 mls/hr IV.SIG BOLUS MYRNA Last Infusion: 06/26/18 15:47 Dose: Infused Sodium Chloride (Ns Inj) 1,000 mls @ 0 mls/hr IV.SIG BOLUS MYRNA Last Infusion: 06/26/18 16:54 Dose: Infused Sodium Chloride (Ns Inj) 1,000 mls @ 100 mls/hr IV.CONT .Q10H MYRNA Last Admin: 06/27/18 04:43 Dose: 100 mls/hr Sodium Chloride (Ns Flush) 2 ml IV.FLUSH UNSCH PRN PRN Reason: FLUSH AFTER USING IV ACCESS Last Admin: 06/26/18 14:03 Dose: 2 ml Sodium Chloride (Ns Flush) 2 ml IV.FLUSH PRN PRN PRN Reason: FLUSH AFTER USING IV ACCESS Sodium Chloride (Ns Flush) 2 ml IV.FLUSH BID MYRNA Last Admin: 06/26/18 20:00 Dose: Not Given Allergies Allergy/AdvReac Type Severity Reaction Status Date / Time No Known Allergies Allergy Verified 05/09/18 05:34 Home Medications Medication Instructions Recorded Confirmed Type No Known Home Medications 06/26/18 06/26/18 History Exam Vital signs: Vital Signs 06/26/18 13:42 06/26/18 14:15 06/26/18 16:05 Temperature 98.4 F Pulse Rate 100 H 87 Respiratory Rate 21 17 Blood Pressure 145/97 H 152/87 H Pulse Oximetry 99 99 99 06/26/18 20:00 06/26/18 20:45 06/26/18 23:35 Temperature 97.4 F L Pulse Rate 85 71 70 Respiratory Rate 20 18 Blood Pressure 136/86 130/86 Pulse Oximetry 97 97 06/27/18 00:00 06/27/18 03:25 06/27/18 07:57 Temperature 98.2 F 97.6 F Pulse Rate 75 80 80 Respiratory Rate 19 16 Blood Pressure 147/105 H 162/93 H Pulse Oximetry 96 97 06/27/18 08:25 Temperature Pulse Rate Respiratory Rate Blood Pressure Pulse Oximetry 99 Intake & Output 06/26/18 06/27/18 06/27/18 18:59 06:59 18:59 Intake Total 2600 / 2600 1720 / 1720 Balance 2600 / 2600 1720 / 1720 Weight 94.347 kg 92.9 kg Intake: IV 2600 / 2600 1000 / 1000 NS Inj 1,000 ML @ 100 mls/hr IV 1000 / 1000 .CONT .Q10H MYRNA Rx#:[id number] NS Inj 1,000 ML @ Wide Open IV. 2000 / 2000 SIG BOLUS MYRNA Rx#:[id number] NS Inj 500 ML @ Wide Open IV. 500 / 500 SIG ONCE ONE Rx#:[id number] Rocephin Inj 1,000 MG In NS Inj 100 / 100 100 ML @ 200 mls/hr IV.SIG ONCE ONE Rx#:[id number] Oral 720 / 720 Other: # Voids 4 Date of Last Bowel Movement 06/26/18 Weight On Admission 92.986 kg Narrative: Well-nourished well-developed but very disheveled patient lying partly crosswise on the bed. His brother is sleeping in the room with him on the chair Skin warm dry but somewhat dirty Had normocephalic atraumatic Eyes pupils are equal and respond to direct and consensual stimulation with light. The right eye shows exotropia but does have retained vision Mouth mucous membranes moist and well papillated upper plate in place lower edentulous Neck supple no JVD masses nodes or bruits Chest mildly diminished breath sounds but no rales wheezes or rhonchi. He is slightly sensitive to pressure over the left pectoralis area Cardiovascular regular sinus rhythm no gallops rubs or murmurs Abdomen is soft nontender no guarding or rebound Extremities no clubbing or cyanosis pulses are intact there is a trace of pitting edema at the ankles Neurologically he has the defect with cranial nerves as noted above otherwise appears intact Psychiatric memory is relatively poor thought process is tangential almost nonsensical at times judgment is obviously very poor Results 06/26/18 13:55 06/26/18 13:55 Cardiac Enzymes 06/26/18 06/26/18 06/26/18 Range/Units 13:55 16:52 16:52 AST 41 H (15-37) U/L CK-MB (CK-2) 12.9 H 11.0 H (0.5-3.6) ng/mL Troponin I 0.02 0.03 Cancelled (0.02-0.05) ng/mL 06/26/18 Range/Units 19:50 AST (15-37) U/L CK-MB (CK-2) 10.3 H (0.5-3.6) ng/mL Troponin I 0.03 (0.02-0.05) ng/mL Coagulation 06/26/18 Range/Units 17:10 PT 10.2 (9.8-11.6) sec APTT 24.9 (24.3-30.1) sec CBC 06/26/18 Range/Units 13:55 WBC 11.6 H (4.0-11.0) th/mm3 RBC 4.30 L (4.50-5.90) mil/mm3 Hgb 12.0 L (13.0-17.0) gm/dL Hct 35.3 L (39.0-51.0) % Plt Count 254 (150-450) th/mm3 Neut # (Auto) 8.8 H (1.8-7.7) th/mm3 Lymph # (Auto) 1.8 (1.0-4.8) th/mm3 [place] # (Auto) 0.8 (0.0-0.9) th/mm3 Eos # (Auto) 0.2 (0.0-0.4) th/mm3 Baso # (Auto) 0.1 (0.0-0.2) th/mm3 Comprehensive Metabolic Panel 06/26/18 Range/Units 13:55 Sodium 142 (136-145) meq/L Potassium 3.6 (3.5-5.1) meq/L Chloride 111 H (98-107) meq/L Carbon Dioxide 22.4 (21.0-32.0) meq/L BUN 26 H (7-18) mg/dL Creatinine 1.56 H (0.60-1.30) mg/dL Calcium 8.1 L (8.5-10.1) mg/dL AST 41 H (15-37) U/L ALT 52 (12-78) U/L Alkaline Phosphatase 77 (45-117) U/L Total Protein 6.5 (6.4-8.2) g/dL Albumin 2.9 L (3.4-5.0) g/dL Intake and Output 06/26/18 06/27/18 06/27/18 22:59 06:59 14:59 Intake Total 2099 1720 / 1720 Balance 2099 1720 / 1720 Intake: IV 2099 1000 / 1000 NS Inj 1,000 ML @ 100 mls/hr IV 1000 / 1000 .CONT .Q10H MYRNA Rx#:[id number] NS Inj 1,000 ML @ Wide Open IV. 1999 SIG BOLUS MYRNA Rx#:[id number] Rocephin Inj 1,000 MG In NS Inj 100 / 100 100 ML @ 200 mls/hr IV.SIG ONCE ONE Rx#:[id number] Oral 720 / 720 Other: # Voids 4 Date of Last Bowel Movement 06/26/18 Weight 92.986 kg 92.9 kg Weight On Admission 92.986 kg - Imaging and Cardiology Imaging: Impressions Chest X-Ray 06/26/18 13:47 CONCLUSION: Negative examination. EKG interpretations - EKG EKG results cardiology: normal ST/T Caprini VTE Risk Assessment Caprini VTE Risk Assessment: No/Low Risk (score <= 1) Caprini Risk Assessment Model: Point Value = 1 Point Value = 2 Point Value = 3 Point Value = 5 Age 41-60 Minor surgery BMI > 25 kg/m2 Swollen legs Varicose veins or History of unexplained or recurrent spontaneous Oral contraceptives or hormone replacement Sepsis (< 1 month) Serious lung disease, including pneumonia (< 1 month) Abnormal pulmonary function Acute myocardial infarction Congestive heart failure (< 1 month) History of inflammatory bowel disease Medical patient at bed rest Age 61-74 Arthroscopic surgery Major open surgery (> 45 min) Laparoscopic surgery (> 45 min) Malignancy Confined to bed (> 72 hours) Immobilizing plaster cast Central venous access Age >= 75 History of VTE Family history of VTE Factor V Leiden Prothrombin [id number] Lupus anticoagulant Anticardiolipin antibodies Elevated serum homocysteine Heparin-induced thrombocytopenia Other congenital or acquired thrombophilia Stroke (< 1 month) Elective arthroplasty Hip, pelvis, or leg fracture Acute spinal cord injury (< 1 month) Prophylaxis Regimen: Total Risk Factor Score Risk Level Prophylaxis Regimen 0-1 Low Early ambulation 2 Moderate Order ONE of the following: *Sequential Compression Device (SCD) *Heparin 5000 units SQ BID 3-4 Higher Order ONE of the following medications: *Heparin 5000 units SQ TID *Enoxaparin/Lovenox 40 mg SQ daily (WT < 150 kg, CrCl > 30 mL/min) *Enoxaparin/Lovenox 30 mg SQ daily (WT < 150 kg, CrCl > 10-29 mL/min) *Enoxaparin/Lovenox 30 mg SQ BID (WT < 150 kg, CrCl > 30 mL/min) AND/OR *Sequential Compression Device (SCD) 5 or more Highest Order ONE of the following medications: *Heparin 5000 units SQ TID (Preferred with Epidurals) *Enoxaparin/Lovenox 40 mg SQ daily (WT < 150 kg, CrCl > 30 mL/min) *Enoxaparin/Lovenox 30 mg SQ daily (WT < 150 kg, CrCl > 10-29 mL/min) *Enoxaparin/Lovenox 30 mg SQ BID (WT < 150 kg, CrCl > 30 mL/min) AND *Sequential Compression Device (SCD) Assessment and Plan - Plan This patient's current presentation is clearly not suggestive of ischemic heart disease or ACS. It is suspicion that he and his brother may simply have needed food lodging. He is apparently well known and followed at [facility] but currently noncompliant with his medications and clearly in need of further outpatient psychiatric help. He appears to be at no risk to himself or others but is probably unable to manage his own affairs. He has ruled out for any cardiac etiology at this time and appears to have no other acute processes going on. Therefore they were fed an extra meal and discharge with instructions to follow up with Joey Reyna. Discussed Condition With: Attempted to discuss this with both the patient and his brother Discharge Planning: Discharged to home with instructions to follow-up with Joey Reyna where he has been followed since apparently he was about 22 years old - Attending Attestation I attest that the patient's presentation warranted the evaluation and treatment as prescribed H&P: Quality - VTE Deep Vein Thrombosis/Pulmonary Embolism Present on Admission: No
[2018-06-27 10:14] VITALS: PULSE 83
--- NOTE | 2018-06-27 11:30 | ECG ---
Date Performed: 06/27/2018 Time Performed: 05:23:10 PTAGE: 57 years EKG: Sinus rhythm NORMAL ECG INTERPRETATION BASED ON A DEFAULT AGE OF 39 YEARS NO PREVIOUS TRACING DOCTOR: Donte Quigley Interpretating Date/Time 06/27/2018 11:29:14
--- NOTE | 2018-06-27 22:18 | ECG ---
Date Performed: 06/26/2018 Time Performed: 20:19:26 PTAGE: 57 years EKG: Sinus rhythm WITH OCCASIONAL SUPRAVENTRICULAR PREMATURE COMPLEXES NONSPECIFIC T-WAVE ABNORMALITY BORDERLINE ECG PREVIOUS TRACING : 06/26/2018 18.42 Since the previous tracing, no significant change noted DOCTOR: Marian Mendoza Interpretating Date/Time 06/27/2018 22:18:01
--- NOTE | 2018-06-27 22:20 | ECG ---
Date Performed: 06/26/2018 Time Performed: 18:42:47 PTAGE: 57 years EKG: Sinus rhythm NONSPECIFIC T-WAVE ABNORMALITY BORDERLINE ECG PREVIOUS TRACING : 06/26/2018 13.41 Since the previous tracing, no significant change noted DOCTOR: Marian Mendoza Interpretating Date/Time 06/27/2018 22:20:24
== END 2018-06-27 10:19 | disposition home or self-care (01) ==
LOC: NEPC 13:31 → NEDA 13:31 → NEPHCDU 18:58
PROVIDERS: ADMIT Internal Medicine Interventional Cardiology; ATTEND Internal Medicine Interventional Cardiology